=== PATIENT | male | born 1930 | race Caucasian/White ===

== ENCOUNTER → 2016-09-08 | Outpatient (CLI) | payer OTHER, BC ==
[~2016-09-08] MED LIST: ASPEC81 PO; CPR500 PO; FAMO20TA11 PO; LVNIS30 SC; OMEG10007 PO; OXYC-57 PO; PLV75 PO; PRS5 PO; PRVC10 PO; ROSU5TAB PO
== END | disposition home or self-care (01) ==
LOC: C.LABSPEC 17:57
PROVIDERS: ATTEND Urology
DX: N40.0 Benign prostatic hyperplasia without lower urinary tract symptoms (principal); R33.9 Retention of urine, unspecified

== ENCOUNTER → 2016-09-30 | Outpatient (CLI) | payer OTHER, BC ==
[2016-09-30 10:47] LABS: COMPLETE YES; EOS % 1.5 %; HEMATOCRIT 47.2 % (42-52); IG% 0.4 %; LYMPH % 24.7 %; MEAN CELL VOLUME 87.2 fL (80-100); MEAN CORPUSCULAR HEMOGLOBIN 29.2 pg (25-34); MEAN CORPUSCULAR HGB CONC 33.5 g/dl (32-36); MEAN PLATELET VOLUME 10.5 fL (7.4-10.4); MONO % 9.6 %; NEUT % 63.8 %; PLATELET COUNT 202 K/uL (130-400); RED BLOOD COUNT 5.41 M/uL (4.7-6.1); WHITE BLOOD COUNT 6.88 K/uL (4.8-10.8)
[2016-09-30 11:07] LABS: ALKALINE PHOSPHATASE 80 U/L (45-117); BLOOD UREA NITROGEN 20 mg/dl (7-18); BUN/CREATININE RATIO 13.5 (10-20); CALCIUM 8.9 mg/dl (8.5-10.1); CARBON DIOXIDE 26 mmol/L (21-32); CHLORIDE 109 mmol/L (98-107); GLUCOSE 108 mg/dl (70-99); POTASSIUM 4.5 mmol/L (3.5-5.1); SODIUM 141 mmol/L (136-145)
[2016-09-30 11:09] LABS: ALT/SGPT 19 U/L (12-78); AST/SGOT 19 U/L (15-37); CHOLESTEROL 214 mg/dl (0-200); CHOLESTEROL/HDL RATIO 4.1; HDL CHOLESTEROL 52 mg/dl; LDL CHOLESTEROL CALCULATED 143 mg/dl; TRIGLYCERIDES 93 mg/dl (0-150); VERY LOW DENSITY LIPOPROT CALC 19 mg/dl
--- NOTE | 2016-10-06 12:54 | CODING QUERY MEDICAL NECESSITY ---
SUPPORTING DIAGNOSIS NEEDED Dr. Hess, A supporting diagnosis is required for the test/procedure performed on this patient in order for us to be reimbursed by the patient's insurance. Please provide a supporting diagnosis for the following test/procedure listed below next to the test name along with your signature. *If there is no additional diagnosis for this patient that would support the following test/procedure please document that below next to the test/procedure. Test(s)/Procedure(s) that require a supporting diagnosis: * ([id number]) B12 VITAMIN LEVEL DIAGNOSIS: DATE OF SERVICE: 09/30/16 Provider Signature: Date: Thank you Pedro [facility] Information Management Once completed, please kindly fax back to [phone] For questions please call [phone]
== END | disposition home or self-care (01) ==
LOC: C.LABBC 08:51
PROVIDERS: ATTEND Internal Medicine
DX: I73.9 Peripheral vascular disease, unspecified (principal); E53.8 Deficiency of other specified B group vitamins

== ENCOUNTER → 2017-02-17 | Outpatient (CLI) | payer OTHER, BC ==
[~2017-02-17] MED LIST changes: -CPR500 PO; -LVNIS30 SC; -PLV75 PO; -PRS5 PO; -PRVC10 PO; -ROSU5TAB PO
== END | disposition home or self-care (01) ==
LOC: C.LABSPEC 10:31
PROVIDERS: ATTEND Urology
DX: R39.15 Urgency of urination (principal); N39.0 Urinary tract infection, site not specified

== ENCOUNTER 2017-03-18 05:06 | Inpatient (IN) | payer OTHER, BC ==
[~2017-03-18] VITALS: Ht 172.7 cm; Wt 83.0 kg
[2017-03-18] VITALS (8 sets, daily range): BP systolic 153–179; BP diastolic 69–89; PULSE 66–86; TEMP 36.6–37; O2SAT 94–98; Ht 172.7 cm; Wt 83.0 kg
--- NOTE | 2017-03-18 05:24 | EMERGENCY ROOM VISIT NOTE ---
History Report prepared by Jarvis: Stephania Barrios Under the Supervision of: Dr. Nick Meek M.D. First contact with patient: 05:05 Stated Complaint: STROKE SYMPTOMS History of Present Illness The patient is a 86 year old male who presents to the Emergency Room with complaints of sudden stroke symptoms beginning at 0100. Per EMS, the patient had trouble walking at 1500 yesterday. Then this morning he woke up at 0100 with left-sided weakness and slurred speech. Per EMS, the patient called his niece about his symptoms at 0400, who called the ambulance. The patient states that he takes 1 Ibuprofen per day, but no other blood thinners. The patient denies having other symptoms. The patient has a history of an AAA-repair. Source of History: patient, EMS Onset: 1500 yesterday Position: other (global ) Quality: other (stroke symptoms ) Timing: other (sudden) Associated Symptoms: No fevers Review of Systems See HPI for pertinent positives & negatives. A total of 10 systems reviewed and were otherwise negative. Past Medical & Surgical Medical Problems: (1) Left-sided weakness Surgical Problems: (1) S/P AAA repair Family History No pertinent family history stated. Social History Marital Status: single Housing Status: lives alone Current/Historical Medications Scheduled Aspirin Enteric Coated (Ecotrin Or Generic *), 81 MG PO DAILY Allergies Coded Allergies: Gluten (Verified Allergy, Unknown, DIARRHEA, ABD PAIN, 03/18/17) Atorvastatin (Verified Adverse Reaction, Unknown, DIZZINESS, MOOD CHANGE, 03/18/17) Pravastatin (Verified Adverse Reaction, Unknown, DIZZINESS,MOOD CHANGE, ) Simvastatin (Verified Adverse Reaction, Unknown, DIZZINESS, MOOD CHANGE, 03/18/17) Physical Exam Vital Signs Date Time Temp Pulse Resp B/P (MAP) Pulse Ox O2 Delivery O2 Flow Rate FiO2 03/18/17 06:30 69 14 146/63 96 03/18/17 06:00 75 29 157/103 97 03/18/17 05:50 73 16 140/80 95 Room Air 03/18/17 05:42 96 Room Air 03/18/17 05:29 77 03/18/17 05:20 36.8 74 20 169/85 95 Room Air Physical Exam GENERAL: Patient is well appearing and in no acute distress. HEENT: No acute trauma, normocephalic atraumatic, mucous membranes moist, no nasal congestion, no scleral icterus. NECK: No stridor, no adenopathy, no meningismus, trachea is midline. LUNGS: No dyspnea. Clear to auscultation and equal bilaterally. No wheeze, no rhonchi. HEART: Regular rate and rhythm. No murmurs, rubs, gallops appreciated. ABDOMEN: Soft, nontender, bowel sounds positive, no masses appreciated, no peritonitis. BACK: No midline tenderness, no CVA tenderness EXTREMITIES: Normal motion all extremities, no cyanosis, no edema. NEUROLOGIC: Alert and oriented, cranial nerves grossly intact. Mild left facial droop. Some decreased strength of left arm compared to the right. Mild left arm drift. 4/5 left leg strength with some ataxia. Mildly slurred speech. SKIN: No rash, no jaundice, no diaphoresis. Medical Decision & Procedures ER Provider Diagnostic Interpretation: Radiology results and stated below per my review and [facility]. CT HEAD: ADDENDUM- Added by Rickey Escalante MD on 03/18/2017 at 5-22 AM Typo in the preliminary report. Report should read: RIGHT basal ganglia remote lacunar infarct. No acute intracranial abnormality. No ICH, mass effect or edema. Cortical atrophy and white matter changes most consistent with chronic small vessel disease. Bilateral lacunar infarcts in the right basal ganglia. X ray results are stated below per my interpretation: Chest: 1 view: No infiltrate, no effusion, normal cardiac border. Laboratory Results 03/18/17 05:24 Red Blood Count 5.45, Mean Corpuscular Volume 85.3, Mean Corpuscular Hemoglobin 28.3, Mean Corpuscular Hemoglobin Concent 33.1, Mean Platelet Volume 9.6, Neutrophils (%) (Auto) 57.7, Lymphocytes (%) (Auto) 28.1, Monocytes (%) (Auto) 11.6, Eosinophils (%) (Auto) 2.3, Basophils (%) (Auto) 0.0, Neutrophils # (Auto ) 3.54, Lymphocytes # (Auto) 1.72, Monocytes # (Auto) 0.71, Eosinophils # (Auto ) 0.14, Basophils # (Auto) 0.00 03/18/17 05:24 Test 03/18/17 05:24 03/18/17 05:27 03/18/17 05:34 White Blood Count 6.13 K/uL (4.8-10.8) Red Blood Count 5.45 M/uL (4.7-6.1) Hemoglobin 15.4 g/dL (14.0-18.0) Hematocrit 46.5 % (42-52) Mean Corpuscular Volume 85.3 fL (80-100) Mean Corpuscular Hemoglobin 28.3 pg (25-34) Mean Corpuscular Hemoglobin Concent 33.1 g/dl (32-36) Platelet Count 189 K/uL (130-400) Mean Platelet Volume 9.6 fL (7.4-10.4) Neutrophils (%) (Auto) 57.7 % Lymphocytes (%) (Auto) 28.1 % Monocytes (%) (Auto) 11.6 % Eosinophils (%) (Auto) 2.3 % Basophils (%) (Auto) 0.0 % Neutrophils # (Auto) 3.54 K/uL (1.4-6.5) Lymphocytes # (Auto) 1.72 K/uL (1.2-3.4) Monocytes # (Auto) 0.71 K/uL (0.11-0.59) Eosinophils # (Auto) 0.14 K/uL (0-0.5) Basophils # (Auto) 0.00 K/uL (0-0.2) RDW Standard Deviation 44.2 fL (36.4-46.3) RDW Coefficient of Variation 14.2 % (11.5-14.5) Immature Granulocyte % (Auto) 0.3 % Immature Granulocyte # (Auto) 0.02 K/uL (0.00-0.02) Prothrombin Time 10.9 SECONDS (9.0-12.0) Prothromb Time International Ratio 1.0 (0.9-1.1) Activated Partial Thromboplast Time 25.4 SECONDS (21.0-31.0) Partial Thromboplastin Ratio 1.0 Est Creatinine Clear Calc Drug Dose 31.7 ml/min Estimated GFR () 45.3 Estimated GFR (Non- 39.1 BUN/Creatinine Ratio 12.8 (10-20) Estimated Average Glucose 103 mg/dl Hemoglobin A1c 5.2 % (4.5-5.6) Calcium Level 8.8 mg/dl (8.5-10.1) Total Creatine Kinase 81 U/L (39-308) Creatine Kinase MB 1.2 ng/ml (0.5-3.6) Creatine Kinase MB Ratio 1.5 (0-3.0) Triglycerides Level 67 mg/dl (0-150) Cholesterol Level 223 mg/dl (0-200) HDL Cholesterol 19 mg/dl LDL Cholesterol, Calculated 191 mg/dl VLDL Cholesterol, Calculated 13 mg/dl Cholesterol/HDL Ratio 11.7 Bedside Glucose 92 mg/dl (70-99) Bedside Hemoglobin 16.0 g/dl (14.0-18.0) Bedside Hematocrit 47 % (42-52) Bedside Sodium 139 mEq/L (135-144) Bedside Potassium 4.1 mEq/L (3.3-5.0) Bedside Chloride 105 mEq/L (101-112) Bedside Total CO2 23 mEq/l (24-31) Anion Gap 17.0 mmol/L (16-25) Bedside Blood Urea Nitrogen 21 mg/dl (7-18) Bedside Creatinine 1.5 mg/dl (0.6-1.3) Bedside Glucose (other) 97 mg/dl (70-99) Bedside Ionized Calcium (Annie) 1.15 mmol/l (1.12-1.32) Laboratory results as reviewed by me. Medications Administered Medications (Trade) Dose Ordered Sig/Dwayne Route Start Time Stop Time Status Last Admin Dose Admin Aspirin (Aspirin Chew) 324 mg NOW STAT PO 03/18/17 05:35 03/18/17 05:36 DC 03/18/17 05:41 324 MG ECG Indication: other (stroke symptoms ) Rate (beats per minute): 79 Rhythm: normal sinus Findings: no acute ischemic change, no ectopy, other (poor baseline ) ED Course 0512: The patient was evaluated in room B1. A complete history and physical exam was performed. 0522: I discussed the patient's case with Dr. Carbajal. He agrees that the patient is not a candidate for TPA. He reviewed the patient's CT again, and states that the images are consistent with a subacute stroke. 0535: Ordered Aspirin 324 mg PO. 0543: I checked on the patient. He is stable and agrees with the treatment plan. 0550: Discussed the patient's case with Dr. Bishop. The patient will be evaluated for further treatment and disposition. 0600: Upon reevaluation, the patient is resting. Discussed results and treatment plan with the patient. He verbalized understanding and agreement with the treatment plan. The patient will be evaluated for further management. Medical Decision Differential: Sepsis, Infectious (UTI/Pneumonia/Meningitis/etc), Metabolic/ Electrolyte Abnormality, Cardiac, Hepatic, Endocrine, Toxicologic, Neurologic, amongst other pathologies entertained. 86 yr old relatively healthy male with AAA repair a few years ago who was well until 3pm yesterday when he realized difficulty ambulating. Wax/waning for throughout the afternoon/evening. Noted when awake at 1 am he had seemed to worsen and around 4 am called anahi to make her aware, who then called 911. Patient arrives with what appears to be symptoms consistent with stroke. He is well outside of [address] was done emergently as Stroke Alert on arrival which revealed evidence of basal ganglia infarct. Patient stable. BP moderately elevated but will let this ride given acute stroke treatment. Tolerating secretions and swallowing without difficulty thus given ASA 324mg PO for further prevention. I did discuss cause with Stroke Neurologist in [place] who agreed patient not TPA candidate and reviewed CT imaging. Patient without complaints and stable throughout. Labs/EKG/CXR OK. Will bring in to Hospitalist service for further work-up and evaluation. Medication Reconcilliation Current Medication List: was personally reviewed by me Blood Pressure Screening Patient's blood pressure: Elevated blood pressure will be monitored by the hospitalist Consults Time Called: 0515 Consulting Physician: Dr. Carbajal- Stroke Neurologist [place] Returned Call: [phone] I discussed the patient's case with Dr. Carbajal. He agrees that the patient is not a candidate for TPA. He reviewed the patient's CT again, and states that the images are consistent with a subacute stroke. Additional Consults: Time Called: 0536 Consulted Physician: Dr. Adair Torres Returned Call: [phone] Additional Comments: Discussed the patient's case. The patient will be evaluated for further treatment and disposition. Impression Primary Impression: Ischemic stroke Scribe Attestation The scribe's documentation has been prepared under my direction and personally reviewed by me in its entirety. I confirm that the note above accurately reflects all work, treatment, procedures, and medical decision making performed by me. Departure Information Dispostion Being Evaluated By Hospitalist Referrals Garret Hess M.D. (PCP) Stroke History Time Last Known Well 15:00 11/1/17 Stroke t-PA Criteria Reviewed Does NOT meet criteria for t-PA Reason t-PA Not Given Contraindicated (Symptom onset 12 hours earlier)
[2017-03-18] MEDS ORDERED: ASPIRIN 324 MG CHEW PO STA (05:35)
[2017-03-18 05:38] LABS: COMPLETE YES; EOS % 2.3 %; HEMATOCRIT 46.5 % (42-52); IG% 0.3 %; LYMPH % 28.1 %; LYMPH ABS # 1.72 K/uL (1.2-3.4); MEAN CELL VOLUME 85.3 fL (80-100); MEAN CORPUSCULAR HEMOGLOBIN 28.3 pg (25-34); MEAN CORPUSCULAR HGB CONC 33.1 g/dl (32-36); MEAN PLATELET VOLUME 9.6 fL (7.4-10.4); MONO % 11.6 %; NEUT % 57.7 %; PLATELET COUNT 189 K/uL (130-400); RED BLOOD COUNT 5.45 M/uL (4.7-6.1); WHITE BLOOD COUNT 6.13 K/uL (4.8-10.8)
[2017-03-18 05:48] LABS: ISTAT CREATININE 1.5 mg/dl (0.6-1.3); ISTAT IONIZED CALCIUM 1.15 mmol/l (1.12-1.32)
[2017-03-18 05:54] LABS: BLOOD UREA NITROGEN 20 mg/dl (7-18); BUN/CREATININE RATIO 12.8 (10-20); CALCIUM 8.8 mg/dl (8.5-10.1); CARBON DIOXIDE 24 mmol/L (21-32); CHLORIDE 107 mmol/L (98-107); CREATININE 1.56 mg/dl (0.60-1.40); GLUCOSE 97 mg/dl (70-99); POTASSIUM 4.2 mmol/L (3.5-5.1); SODIUM 138 mmol/L (136-145)
[2017-03-18 05:59] LABS: CKMB/CK RATIO 1.5 (0-3.0)
[2017-03-18 06:06] LABS: PROTHROMBIN TIME (PATIENT) 10.9 SECONDS (9.0-12.0)
[2017-03-18] MEDS ORDERED: ACETAMINOPHEN 325 MG TAB PO PRN (06:30)
[2017-03-18] MEDS ORDERED: PHARMACIST DISCHARGE MED REC CONSULT PRN (06:30)
[2017-03-18] MEDS ORDERED: FAMOTIDINE IV INJ 20 MG in DEXTROSE 5% 100ML 100 ML IV SCH (06:30)
[2017-03-18] MEDS ORDERED: ONDANSETRON INJ 2 MG/ML 2 ML VIAL IV PRN (06:30)
[2017-03-18] MEDS ORDERED: ACETAMINOPHEN IV 100 ML IV PRN (06:30)
--- NOTE | 2017-03-18 06:47 | DIAGNOSTIC IMAGING REPORT ---
CHEST ONE VIEW PORTABLE CLINICAL HISTORY: Stroke symptoms. COMPARISON STUDY: Chest radiograph September 25, 2010. FINDINGS: Lung volumes are normal. No pneumothorax or pleural effusion is present. Pulmonary vascularity is normal. Cardiomediastinal silhouette is stable. There is no consolidation to suggest pneumonia. IMPRESSION: No acute cardiopulmonary findings. Electronically signed by: Edgardo Shah M.D. 03/18/2017 6:46 AM Dictated Date/Time: 03/18/2017 6:45 AM
--- NOTE | 2017-03-18 06:52 | DIAGNOSTIC IMAGING REPORT ---
CT OF THE HEAD WITHOUT CONTRAST CLINICAL HISTORY: Left sided weakness and tingling. Stroke symptoms. COMPARISON STUDY: No previous studies for comparison. CT DOSE: 651.12 mGy.cm TECHNIQUE: Helical axial images of the head were obtained without IV contrast. Automated exposure control was utilized for the study. A dose lowering technique was utilized adhering to the principles of ALARA. FINDINGS: No acute intracranial hemorrhage, midline shift or mass effect is present. Basilar cisterns are patent. No extra-axial collections are present. Ventricular system is unremarkable for age. A 9 mm hypodensity within the right caudate head is noted. This is likely old. There are no CT findings to suggest acute dural sinus thrombosis or acute territorial infarct. There are no significant calvarial abnormalities. Visualized portions of the sinuses and the mastoid air cells are clear. IMPRESSION: 1. No acute intracranial hemorrhage or mass effect. 2. 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 Electronically signed by: Edgardo Shah M.D. 03/18/2017 6:51 AM Dictated Date/Time: 03/18/2017 6:46 AM
--- NOTE | 2017-03-18 07:15 | History and Physical ---
History & Physical Date & Time of Service: Mar 18, 2017 at 07:00 Chief Complaint: Stroke Symptoms Primary Care Physician: Garret Hess M.D. History of Present Illness Source: patient, family The patient is an 86-year-old male, who lives alone, who noted an episode of palpitations and left-sided weakness as he was carrying a flowerpot to the outside of his house during the afternoon at 1500 hrs. He reports that he had been doing more intensive physical activity involving cleaning his outside chairs earlier in the day as well. He was later that day able to cook his own meal and 8 without any significant coughing or indigestion. When he awoke at 0100 hrs. this morning, his left sided weakness had returned, he had slurred speech as well, and called his niece at 04 100. Who then called the ambulance. Patient reports he does take aspirin daily. His main medical problems as point has been triple-A repair by Dr. Mitchell. The patient did present as a stroke alert, but was determined to not be an appropriate candidate for TPA due to timing of the stroke and significant improvement in symptoms. Past Medical/Surgical History Surgical Problems: (1) S/P AAA repair Status: Resolved Family History Noncontributory Social History Smoking Status: Former Smoker Smokeless Tobacco Use: No Alcohol Use: none Drug Use: none Marital Status: single Housing status: lives alone Immunizations History of Influenza Vaccine: No History of Tetanus Vaccine?: No History of Pneumococcal: No History of Hepatitis B Vaccine: No Multi-Drug Resistant Organisms History of MDRO: No Allergies Coded Allergies: Gluten (Verified Allergy, Unknown, DIARRHEA, ABD PAIN, 03/18/17) Atorvastatin (Verified Adverse Reaction, Unknown, DIZZINESS, MOOD CHANGE, 03/18/17) Pravastatin (Verified Adverse Reaction, Unknown, DIZZINESS,MOOD CHANGE, ) Simvastatin (Verified Adverse Reaction, Unknown, DIZZINESS, MOOD CHANGE, 03/18/17) Home Medications Scheduled Aspirin Enteric Coated (Ecotrin Or Generic *), 81 MG PO DAILY Review of Systems The patient denies chest pain, palpitations, shortness of breath, cough, lower extremity swelling, vision change, hearing change, sore throat, fevers, chills, sweats, weight change, fatigue, nausea, vomiting, diarrhea or constipation, abdominal pain, pelvic pain, blood in urine or stool, dysuria, urinary frequency or urgency, lightheadedness , dizziness, headache, memory loss, loss of consciousness, rash, abnormal bruising or bleeding, generalized arthralgias or myalgias, back or neck pain, or night sweats. The review of systems is otherwise negative other than for that already noted above, and at least 10 systems have been reviewed. Physical Exam Vital Signs Date Time Temp Pulse Resp B/P (MAP) Pulse Ox O2 Delivery O2 Flow Rate FiO2 03/18/17 06:30 69 14 146/63 96 03/18/17 06:00 75 29 157/103 97 03/18/17 05:50 73 16 140/80 95 Room Air 03/18/17 05:42 96 Room Air 03/18/17 05:29 77 03/18/17 05:20 36.8 74 20 169/85 95 Room Air The patient is awake, well-developed and adequately nourished, alert and oriented 3, normocephalic and atraumatic, lying in bed and in no acute distress. HEENT--PERRL, EOMI, mucous membranes and oropharynx dry. Neck--supple, no JVD or bruits, thyroid normal, trachea midline, no adenopathy. Heart--normal S1 and S2, no extra beats, no murmurs, rubs or gallops. Lungs--clear bilaterally with good air movement, no respiratory distress, no accessory muscle use. Abdomen--normal bowel sounds and soft, nontender and nondistended, no hernias or masses, no organomegaly. Extremities--no cyanosis, clubbing or edema. There are good distal pulses b/l. Dermatologic--normal skin turgor, normal color, warm and dry, no abnormal lymph nodes, no rash. Neurologic--cranial nerves II through XII grossly intact. Right upper and lower extremities 5/5 motor strength and intact sensation. Left upper extremity 4+/5 and left lower extremity 5/5 motor strength with intact sensation. Rheumatologic--normal range of motion. Psychiatric--normal affect. Diagnostics Laboratory Results Results Past 24 Hours Test 03/18/17 05:24 03/18/17 05:27 03/18/17 05:34 03/18/17 06:25 Range/Units White Blood Count 6.13 4.8-10.8 K/uL Red Blood Count 5.45 4.7-6.1 M/uL Hemoglobin 15.4 14.0-18.0 g/dL Hematocrit 46.5 42-52 % Mean Corpuscular Volume 85.3 80-100 fL Mean Corpuscular Hemoglobin 28.3 25-34 pg Mean Corpuscular Hemoglobin Concent 33.1 32-36 g/dl Platelet Count 189 130-400 K/uL Mean Platelet Volume 9.6 7.4-10.4 fL Neutrophils (%) (Auto) 57.7 % Lymphocytes (%) (Auto) 28.1 % Monocytes (%) (Auto) 11.6 % Eosinophils (%) (Auto) 2.3 % Basophils (%) (Auto) 0.0 % Neutrophils # (Auto) 3.54 1.4-6.5 K/uL Lymphocytes # (Auto) 1.72 1.2-3.4 K/uL Monocytes # (Auto) 0.71 0.11-0.59 K/uL Eosinophils # (Auto) 0.14 0-0.5 K/uL Basophils # (Auto) 0.00 0-0.2 K/uL RDW Standard Deviation 44.2 36.4-46.3 fL RDW Coefficient of Variation 14.2 11.5-14.5 % Immature Granulocyte % (Auto) 0.3 % Immature Granulocyte # (Auto) 0.02 0.00-0.02 K/uL Prothrombin Time 10.9 9.0-12.0 SECONDS Prothromb Time International Ratio 1.0 0.9-1.1 Activated Partial Thromboplast Time 25.4 21.0-31.0 SECONDS Partial Thromboplastin Ratio 1.0 Sodium Level 138 136-145 mmol/L Potassium Level 4.2 3.5-5.1 mmol/L Chloride Level 107 98-107 mmol/L Carbon Dioxide Level 24 21-32 mmol/L Anion Gap 7.0 17.0 16-25 mmol/L Blood Urea Nitrogen 20 7-18 mg/dl Creatinine 1.56 0.60-1.40 mg/dl Est Creatinine Clear Calc Drug Dose 31.7 ml/min Estimated GFR () 45.3 Estimated GFR (Non- 39.1 BUN/Creatinine Ratio 12.8 10-20 Random Glucose 97 70-99 mg/dl Calcium Level 8.8 8.5-10.1 mg/dl Total Creatine Kinase 81 39-308 U/L Creatine Kinase MB 1.2 0.5-3.6 ng/ml Creatine Kinase MB Ratio 1.5 0-3.0 Troponin I < 0.015 0-0.045 ng/ml Bedside Glucose 92 70-99 mg/dl Bedside Hemoglobin 16.0 14.0-18.0 g/dl Bedside Hematocrit 47 42-52 % Bedside Sodium 139 135-144 mEq/L Bedside Potassium 4.1 3.3-5.0 mEq/L Bedside Chloride 105 101-112 mEq/L Bedside Total CO2 23 24-31 mEq/l Bedside Blood Urea Nitrogen 21 7-18 mg/dl Bedside Creatinine 1.5 0.6-1.3 mg/dl Bedside Glucose (other) 97 70-99 mg/dl Bedside Ionized Calcium (Annie) 1.15 1.12-1.32 mmol/l Test 03/18/17 06:30 Range/Units Diagnostic Radiology Patient Name: MARYCARMEN HORAN Unit Number: [id number] Dictated: 03/18/17645 Transcribed: 03/18/17645 ANDIE Printed Date/Time: [~ rep prt dt]/[~ rep prt tm] [~ rep ct labl] - [~ rep ct ivnm] [facility] [place] [address] Dictated: 03/18/17645 Transcribed: 03/18/17645 Printed Date/Time: [~ rep prt dt]/[~ rep prt tm] [~ rep ct labl] - [~ rep ct ivnm] [~ rep ct add3]] CT OF THE HEAD WITHOUT CONTRAST CLINICAL HISTORY: Left sided weakness and tingling. Stroke symptoms. COMPARISON STUDY: No previous studies for comparison. CT DOSE: 651.12 mGy.cm TECHNIQUE: Helical axial images of the head were obtained without IV contrast. Automated exposure control was utilized for the study. A dose lowering technique was utilized adhering to the principles of ALARA. FINDINGS: No acute intracranial hemorrhage, midline shift or mass effect is present. Basilar cisterns are patent. No extra-axial collections are present. Ventricular system is unremarkable for age. A 9 mm hypodensity within the right caudate head is noted. This is likely old. There are no CT findings to suggest acute dural sinus thrombosis or acute territorial infarct. There are no significant calvarial abnormalities. Visualized portions of the sinuses and the mastoid air cells are clear. IMPRESSION: 1. No acute intracranial hemorrhage or mass effect. 2. 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 Electronically signed by: Edgardo Shah M.D. 03/18/2017 6:51 AM Dictated Date/Time: 03/18/2017 6:46 AM The status of this report is Signed. Draft = Not yet reviewed or approved by Radiologist. Signed = Reviewed and approved by Radiologist. <AttendingPhy></AttendingPhy> <FamilyPhy>Garret Hess M.D.</FamilyPhy> < PrimaryPhy>Garret Hess M.D.</PrimaryPhy> <UnitNumber>[id number]</UnitNumber> <VisitNumber>[id number]</VisitNumber> <PatientName>MARYCARMEN HORAN</ PatientName> <DateOfBirth>1930</DateOfBirth> <Location>C.EDB</Location> < ServiceDate>03/18/17</ServiceDate> <MNE>ESINDI</MNE> <OrderingPhy>Nick Meek M.D.</OrderingPhy> <OrderingPhyMNE>f rep ord dr pearson</OrderingPhyMNE> < DictatingPhyMNE>f rep dict dr pearson</DictatingPhyMNE> <CCListMNE>f rep ct michel</ CCListMNE> <AdmittingPhyMNE>f pt admit dr pearson</AdmittingPhyMNE> <AttendingPhyMNE >f pt attend dr pearson</AttendingPhyMNE> <ConsultingPhyMNE>f pt consult dr pearson</ConsultingPhyMNE> <FamilyPhyMNE>f pt fam dr pearson</FamilyPhyMNE> <OtherPhyMNE>f pt other dr pearson</OtherPhyMNE> < PrimaryPhyMNE>f pt prim care dr pearson</PrimaryPhyMNE> <ReferringPhyMNE>f pt referring dr pearson</ReferringPhyMNE> Patient Name: MARYCARMEN HORAN Unit Number: [id number] Dictated: 03/18/17644 Transcribed: 03/18/17644 JA Printed Date/Time: [~ rep prt dt]/[~ rep prt tm] [~ rep ct labl] - [~ rep ct ivnm] [facility] [place] [address] Dictated: 03/18/17644 Transcribed: 03/18/17644 JA Printed Date/Time: [~ rep prt dt]/[~ rep prt tm] [~ rep ct labl] - [~ rep ct ivnm] [~ rep ct add3]] CHEST ONE VIEW PORTABLE CLINICAL HISTORY: Stroke symptoms. COMPARISON STUDY: Chest radiograph September 25, 2010. FINDINGS: Lung volumes are normal. No pneumothorax or pleural effusion is present. Pulmonary vascularity is normal. Cardiomediastinal silhouette is stable. There is no consolidation to suggest pneumonia. IMPRESSION: No acute cardiopulmonary findings. Electronically signed by: Edgardo Shah M.D. 03/18/2017 6:46 AM Dictated Date/Time: 03/18/2017 6:45 AM The status of this report is Signed. Draft = Not yet reviewed or approved by Radiologist. Signed = Reviewed and approved by Radiologist. <AttendingPhy></AttendingPhy> <FamilyPhy>Garret Hess M.D.</FamilyPhy> < PrimaryPhy>Garret Hess M.D.</PrimaryPhy> <UnitNumber>[id number]</UnitNumber> <VisitNumber>[id number]</VisitNumber> <PatientName>MARYCARMEN HORAN</ PatientName> <DateOfBirth>1930</DateOfBirth> <Location>C.EDB</Location> < ServiceDate>03/18/17</ServiceDate> <MNE>ESINDI</MNE> <OrderingPhy>Nick Meek M.D.</OrderingPhy> <OrderingPhyMNE>f rep ord dr pearson</OrderingPhyMNE> < DictatingPhyMNE>f rep dict dr pearson</DictatingPhyMNE> <CCListMNE>f rep ct mne</ CCListMNE> <AdmittingPhyMNE>f pt admit dr pearson</AdmittingPhyMNE> <AttendingPhyMNE >f pt attend dr pearson</AttendingPhyMNE> <ConsultingPhyMNE>f pt consult dr pearson</ConsultingPhyMNE> <FamilyPhyMNE>f pt fam dr pearson</FamilyPhyMNE> <OtherPhyMNE>f pt other dr pearson</OtherPhyMNE> < PrimaryPhyMNE>f pt prim care dr pearson</PrimaryPhyMNE> <ReferringPhyMNE>f pt referring dr pearson</ReferringPhyMNE> EKG EKG is pending at the time of dictation, the rhythm on the monitor and ED shows normal sinus rhythm at 80 bpm Impression Assessment and Plan Left sided weakness/TIA versus CVA/CT of head initially read as right basal ganglia lacunar infarcts and later read as 9 mm caudate nucleus infarct likely old-- Patient be admitted per stroke protocol. The patient will be admitted to telemetry for serial cardiac enzymes, cardiac rhythm monitoring and a 2-D echocardiogram with Dopplers. Order MRI of brain combo, MRA of head without contrast, and MRA of the neck combo. Consult PT/OT/manager social/neurology. The patient reports he takes a baby aspirin daily, and this will be aspirin failure. Stop aspirin 81 mg daily. Start clopidogrel 75 mg by mouth daily Permissive hypertension with blood pressure in the ED 156/100. The patient is intolerant of statins including atorvastatin, pravastatin and simvastatin. Renal insufficiency of unknown chronicity with creatinine of 1.56-- Normal saline at 100 mils per hour. Serial BMP and magnesium levels. Level of Care Telemetry Advanced Directives Existing Advance Directive: No Existing Living Will: No Existing Power of [place]: No Resuscitation Status FULL RESUSCITATION VTE Prophylaxis VTE Risk Assessment Done? Y/N: Yes Risk Level: High Given or contraindicated: Enoxaparin (Lovenox)SQ, SCD's Social Service Consult >80 yr.& Lives Alone
[2017-03-18 07:57] LABS: CHOLESTEROL/HDL RATIO 11.7
[2017-03-18] MEDS: SODIUM CHLORIDE 0.9% 1000ML 1,000 ML IV SCH ×2 (08:23→17:03)
[2017-03-18 08:28] LABS: URINE APPEARANCE CLOUDY (CLEAR); URINE BILIRUBIN NEG (NEG); URINE COLOR YELLOW; URINE EPITHELIAL CELL AUTO 20-30 /lpf (0-5); URINE NITRITE POS (NEG); URINE SPECIFIC GRAVITY 1.014 (1.000-1.030); UROBILINOGEN NEG (NEG); ZZURINE CULT IF INDIC CATH YES
[2017-03-18 08:29] LABS: MANUAL MICROSCOPIC REQUIRED? NO; REVIEW REQ? YES
[2017-03-18 08:53] LABS: BENZODIAZEPINE, URINE NEG (NEG); COCAINE,URINE NEG (NEG); PHENCYCLIDINE, URINE NEG (NEG)
[2017-03-18] MEDS: CLOPIDOGREL BISULFATE 75 MG TAB PO SCH (09:13)
[2017-03-18] MEDS: FAMOTIDINE IV INJ 20 MG in SYRINGE 3 ML IV SCH ×2 (09:13→20:59)
[2017-03-18] MEDS: ENOXAPARIN 30 MG/0.3 ML SYR SC SCH (09:14)
--- NOTE | 2017-03-18 09:20 | Neurology Consultation ---
Neurology Consultation Date of Consultation: Mar 18, 2017. Attending Physician: Francisco J Sol D.O. Primary Care Physician: Garret Hess M.D. Reason for Consultation: Consultation for stroke History of Present Illness Source: patient, clinic records, hospital records This is a 86-year-old left-handed male who presents with left-sided weakness. He reports that he was working in the yard yesterday afternoon when he suddenly got weakness on the left side of his body. Reported rapid heart rate. Initially just felt like his left arm and leg felt on. When inside to rest. Symptoms seem to increase overnight and he presented to the emergency room for evaluation. She denies any numbness or tingling. He did report that initially his left face felt off as well. He does report trouble getting his words out since this happened. Denies any vision changes. Denies any chest pain or shortness of breath. Denies any past strokelike events. Patient reports intolerance to Lipitor, pravastatin and simvastatin. On questioning his response he reports that these medications make him feel dizzy and high. He denies muscle pain. Upon reviewing the outpatient chart it also appears that the patient had been recommended taking low-dose aspirin especially in setting of his peripheral vascular disease which he also refused. There have been discussions on retrying a low-dose statin which he refused. This morning the patient reports that his left-sided symptoms persist but his facial symptoms improved. CT of the head report and images reviewed by myself. There is evidence of a right caudate ischemic stroke that is age determinant but likely chronic. Total cholesterol 223, LDL 191, HDL 19, triglycerides 67, creatinine 1.5. Hemoglobin A1c is pending. Past Medical/Surgical History Medical Problems: (1) Right basal ganglia embolic stroke Status: Acute Past medical history significant for AAA repair, renal insufficiency and neurogenic bladder, dyslipidemia, peripheral vascular disease, chronic low back pain Family History Patient denies any family history for stroke, heart attacks, or blood clots Social History Patient is normally independent in his activities of daily living. Remote tobacco use. Occasional alcohol use. No illegal drug use or stimulant use Smokeless Tobacco Use: No Alcohol Use: none Drug Use: none Marital Status: single Housing Status: lives alone Allergies Coded Allergies: Gluten (Verified Allergy, Unknown, DIARRHEA, ABD PAIN, 03/18/17) Atorvastatin (Verified Adverse Reaction, Unknown, DIZZINESS, MOOD CHANGE, 03/18/17) Pravastatin (Verified Adverse Reaction, Unknown, DIZZINESS,MOOD CHANGE, ) Simvastatin (Verified Adverse Reaction, Unknown, DIZZINESS, MOOD CHANGE, 03/18/17) Current Inpatient Medications Current Inpatient Medications Medications (Trade) Dose Ordered Sig/Dwayne Route Start Time Stop Time Status Last Admin Dose Admin Clopidogrel Bisulfate (plAVix TAB) 75 mg QAM PO 03/18/17 09:00 04/17/17 08:59 Miscellaneous Information (Pharmacist Discharge Med Rec Consult) 1 ea UD PRN N/A 03/18/17 06:30 04/17/17 06:29 Sodium Chloride 1,000 ml @ 100 mls/hr Q10H IV 03/18/17 07:45 04/17/17 07:44 03/18/17 08:23 100 MLS/HR Enoxaparin Sodium (Lovenox Inj) 30 mg Q24H SC 03/18/17 09:00 04/17/17 08:59 Acetaminophen (Tylenol Tab) 650 mg Q4H PRN PO 03/18/17 06:30 04/17/17 06:29 Ondansetron HCl (Zofran Inj) 4 mg Q6H PRN IV 03/18/17 06:30 04/17/17 06:29 Acetaminophen 100 ml @ 400 mls/hr Q8H PRN IV 03/18/17 06:30 04/17/17 06:29 Famotidine 20 mg/ Syringe 5 ml @ 2.5 mls/min Q12H IV 03/18/17 09:00 04/17/17 08:59 Review of Systems Complete review of systems otherwise negative except for the above noted in history of present illness Physical Exam Vital Signs (Past 24 Hrs): Date Time Temp Pulse Resp B/P (MAP) Pulse Ox O2 Delivery O2 Flow Rate FiO2 03/18/17 08:22 36.6 71 20 176/82 97 Room Air 03/18/17 08:00 97 Room Air 03/18/17 07:38 36.6 71 18 176/82 (113) 97 Room Air 03/18/17 06:30 69 14 146/63 96 03/18/17 06:00 75 29 157/103 97 03/18/17 05:50 73 16 140/80 95 Room Air 03/18/17 05:42 96 Room Air 03/18/17 05:29 77 03/18/17 05:20 36.8 74 20 169/85 95 Room Air Gen.: Patient is alert and sitting in bed, in no acute distress. HEENT: Normocephalic /atraumatic, no scleral icterus Heart: Regular rate and rhythm Extremities: No gross deformities or rashes noted Neurological examination: Mental status: Patient is alert and oriented x3. Attention and concentration normal for the situation. Good fund of knowledge. Remote and recent memory intact. Speech is fluent without any dysarthria or aphasia noted Cranial nerve: Visual weir intact to counting. Funduscopic examination was unremarkable. No papilledema. Pupils equally round and reactive to light. Extraocular muscles intact without nystagmus. No facial asymmetry noted. Facial sensation intact. Tongue is midline. Good palatal elevation. Good shoulder shrug bilaterally. Hearing grossly intact to voice. Strength: 5/5 both proximal and distally in the right upper and lower extremity. Trace weakness in left upper and lower extremity with pronator drift of left upper cavity. Tone is normal. Sensation: Grossly intact to light touch in all extremities. No sensory extinction Deep tendon reflexes: +1 in bilateral biceps, brachioradialis and patellar. Subtle upgoing toe on the left Coordination: Patient had good finger to nose without dysmetria but had more difficulty on the left due to likely upper extremity weakness Station within the bed was normal Laboratory Results Past 24 Hours: 03/18/17 05:24 Red Blood Count 5.45, Mean Corpuscular Volume 85.3, Mean Corpuscular Hemoglobin 28.3, Mean Corpuscular Hemoglobin Concent 33.1, Mean Platelet Volume 9.6, Neutrophils (%) (Auto) 57.7, Lymphocytes (%) (Auto) 28.1, Monocytes (%) (Auto) 11.6, Eosinophils (%) (Auto) 2.3, Basophils (%) (Auto) 0.0, Neutrophils # (Auto ) 3.54, Lymphocytes # (Auto) 1.72, Monocytes # (Auto) 0.71, Eosinophils # (Auto ) 0.14, Basophils # (Auto) 0.00 03/18/17 05:24 Test 03/18/17 05:24 03/18/17 05:27 03/18/17 05:34 03/18/17 08:20 White Blood Count 6.13 K/uL (4.8-10.8) Red Blood Count 5.45 M/uL (4.7-6.1) Hemoglobin 15.4 g/dL (14.0-18.0) Hematocrit 46.5 % (42-52) Mean Corpuscular Volume 85.3 fL (80-100) Mean Corpuscular Hemoglobin 28.3 pg (25-34) Mean Corpuscular Hemoglobin Concent 33.1 g/dl (32-36) Platelet Count 189 K/uL (130-400) Mean Platelet Volume 9.6 fL (7.4-10.4) Neutrophils (%) (Auto) 57.7 % Lymphocytes (%) (Auto) 28.1 % Monocytes (%) (Auto) 11.6 % Eosinophils (%) (Auto) 2.3 % Basophils (%) (Auto) 0.0 % Neutrophils # (Auto) 3.54 K/uL (1.4-6.5) Lymphocytes # (Auto) 1.72 K/uL (1.2-3.4) Monocytes # (Auto) 0.71 K/uL (0.11-0.59) Eosinophils # (Auto) 0.14 K/uL (0-0.5) Basophils # (Auto) 0.00 K/uL (0-0.2) RDW Standard Deviation 44.2 fL (36.4-46.3) RDW Coefficient of Variation 14.2 % (11.5-14.5) Immature Granulocyte % (Auto) 0.3 % Immature Granulocyte # (Auto) 0.02 K/uL (0.00-0.02) Prothrombin Time 10.9 SECONDS (9.0-12.0) Prothromb Time International Ratio 1.0 (0.9-1.1) Activated Partial Thromboplast Time 25.4 SECONDS (21.0-31.0) Partial Thromboplastin Ratio 1.0 Est Creatinine Clear Calc Drug Dose 31.7 ml/min Estimated GFR () 45.3 Estimated GFR (Non- 39.1 BUN/Creatinine Ratio 12.8 (10-20) Calcium Level 8.8 mg/dl (8.5-10.1) Total Creatine Kinase 81 U/L (39-308) Creatine Kinase MB 1.2 ng/ml (0.5-3.6) Creatine Kinase MB Ratio 1.5 (0-3.0) Troponin I < 0.015 ng/ml (0-0.045) Triglycerides Level 67 mg/dl (0-150) Cholesterol Level 223 mg/dl (0-200) HDL Cholesterol 19 mg/dl LDL Cholesterol, Calculated 191 mg/dl VLDL Cholesterol, Calculated 13 mg/dl Cholesterol/HDL Ratio 11.7 Bedside Glucose 92 mg/dl (70-99) Bedside Hemoglobin 16.0 g/dl (14.0-18.0) Bedside Hematocrit 47 % (42-52) Bedside Sodium 139 mEq/L (135-144) Bedside Potassium 4.1 mEq/L (3.3-5.0) Bedside Chloride 105 mEq/L (101-112) Bedside Total CO2 23 mEq/l (24-31) Anion Gap 17.0 mmol/L (16-25) Bedside Blood Urea Nitrogen 21 mg/dl (7-18) Bedside Creatinine 1.5 mg/dl (0.6-1.3) Bedside Glucose (other) 97 mg/dl (70-99) Bedside Ionized Calcium (Annie) 1.15 mmol/l (1.12-1.32) Urine Color YELLOW Urine Appearance CLOUDY (CLEAR) Urine pH 7.0 (4.5-7.5) Urine Specific [place] 1.014 (1.000-1.030) Urine Protein NEG (NEG) Urine Glucose (UA) NEG (NEG) Urine Ketones NEG (NEG) Urine Occult Blood NEG (NEG) Urine Nitrite POS (NEG) Urine Bilirubin NEG (NEG) Urine Urobilinogen NEG (NEG) Urine Leukocyte Esterase SMALL (NEG) Urine WBC (Auto) 5-10 /hpf (0-5) Urine RBC (Auto) 0-4 /hpf (0-4) Urine Hyaline Casts (Auto) 0 /lpf (0-5) Urine Epithelial Cells (Auto) 20-30 /lpf (0-5) Urine Bacteria (Auto) 3+ (NEG) Urine Yeast (Auto) (NONE PRSENT) Urine Opiates Screen NEG (NEG) Urine Methadone, Qualitative NEG (NEG) Urine Barbiturates NEG (NEG) Urine Phencyclidine (PCP) Level NEG (NEG) Ur Amphetamine/Methamphetamine NEG (NEG) MDMA (Ecstasy) Screen NEG (NEG) Urine Benzodiazepines Screen NEG (NEG) Urine Cocaine Metabolite NEG (NEG) Urine Marijuana (THC) NEG (NEG) Imaging As noted above in history of present illness Impression This is a 86-year-old left-handed male who presents with acute onset of left hemiplegia, subjective speech changes, and resolved left facial symptoms. Likely right hemispheric ischemic stroke. Known stroke risk factors include dyslipidemia and peripheral vascular disease. Patient was not on an aspirin or statin at the time of the event. Plan It does not sound like the patient has had a true statin allergy or intolerance. He reports that statins just make him feel off or high. Recommend trying a low-dose statin. I have ordered pravastatin 10 mg at night to see if the patient tolerates this. Agree with Plavix initiation for secondary stroke prevention MRI of the brain and MRA of the head and neck are pending Echocardiogram is pending Hemoglobin A1c is pending Follow-up PT/OT and speech therapies for discharge planning. Blood pressure recommendations while in hospital 175/95-150/80 (MAPs 90-110) Avoid hypotension and dehydration Stroke risk factor modifications and recommendations: Blood pressure recommendations for the first month post hospital discharge 150/ 90-130/80, and after that blood pressure recommendations 130/80-110/70 Total cholesterol goal 100-200 and LDL goal less than 100 Hemoglobin A1c goal less than 7 Encourage cardiovascular exercise at least 3 times a week for 30 minutes. Follow-up in neurology clinic in 1 month for post stroke hospital follow-up. If there is any questions or concerns, feel free to call/page me.
[2017-03-18 10:18] LABS: ESTIMATED AVERAGE GLUCOSE 103 mg/dl; HA1C FLAG Normal (Normal)
--- NOTE | 2017-03-18 11:52 | Hospitalist Progress Note ---
Hospitalist Progress Note Date of Service Mar 18, 2017. Subjective Pt evaluation today including: conversation w/ patient Voiding: requires PRN straight cath Patient resting in bed. No signs of acute distress. Eating and drinking OK. Admits to continued slurred speech- however, improving +L sided weakness- denies improvement since admission +palpitations yesterday afternoon, but quickly resolved within minutes. Denies any recurrent palpitations since admission. Neurology started patient on Pravastatin. Discussed allergies w/ patient- Lipitor made patient "high." Denies issues w/ Pravastatin and Simvastatin. Patient denies any fever, chills, sweats, lightheadedness, dizziness, vision changes, CP, edema, SOB, wheezing, cough, abdominal pain, nausea, vomiting, diarrhea, urinary symptoms, melena, numbness/tingling, muscle/joint pain, anxiety/depression, active bleeding, or new skin discoloration/changes. Medications Current Inpatient Medications Medications (Trade) Dose Ordered Sig/Dwayne Route Start Time Stop Time Status Last Admin Dose Admin Clopidogrel Bisulfate (plAVix TAB) 75 mg QAM PO 03/18/17 09:00 04/17/17 08:59 03/18/17 09:13 75 MG Miscellaneous Information (Pharmacist Discharge Med Rec Consult) 1 ea UD PRN N/A 03/18/17 06:30 04/17/17 06:29 Sodium Chloride 1,000 ml @ 100 mls/hr Q10H IV 03/18/17 07:45 04/17/17 07:44 03/18/17 08:23 100 MLS/HR Enoxaparin Sodium (Lovenox Inj) 30 mg Q24H SC 03/18/17 09:00 04/17/17 08:59 03/18/17 09:14 30 MG Acetaminophen (Tylenol Tab) 650 mg Q4H PRN PO 03/18/17 06:30 04/17/17 06:29 Ondansetron HCl (Zofran Inj) 4 mg Q6H PRN IV 03/18/17 06:30 04/17/17 06:29 Acetaminophen 100 ml @ 400 mls/hr Q8H PRN IV 03/18/17 06:30 04/17/17 06:29 Famotidine 20 mg/ Syringe 5 ml @ 2.5 mls/min Q12H IV 03/18/17 09:00 04/17/17 08:59 03/18/17 09:13 2.5 MLS/MIN Pravastatin Sodium (Pravachol Tab) 10 mg DAILY@17 PO 03/18/17 17:00 04/17/17 16:59 UNV Finasteride (Proscar Tab) 5 mg QAM PO 03/19/17 09:00 04/18/17 08:59 UNV Objective Vital Signs Date Time Temp Pulse Resp B/P (MAP) Pulse Ox O2 Delivery O2 Flow Rate FiO2 03/18/17 08:22 36.6 71 20 176/82 97 Room Air 03/18/17 08:00 97 Room Air 03/18/17 07:38 36.6 71 18 176/82 (113) 97 Room Air 03/18/17 06:30 69 14 146/63 96 03/18/17 06:00 75 29 157/103 97 03/18/17 05:50 73 16 140/80 95 Room Air 03/18/17 05:42 96 Room Air 03/18/17 05:29 77 03/18/17 05:20 36.8 74 20 169/85 95 Room Air Physical Exam General Appearance: no apparent distress Eyes: normal inspection, PERRL ENT: hearing grossly normal Neck: supple Respiratory/Chest: lungs clear, no respiratory distress, no accessory muscle use Cardiovascular: regular rate, rhythm Abdomen: normal bowel sounds, non tender, soft Extremities: no pedal edema, no calf tenderness Neurologic/Psychiatric: alert, normal mood/affect, oriented x 3, + pertinent finding (+minimal L sided weakness to upper/lower extremity ) Skin: normal color, warm/dry, no rash Laboratory Results Last 24 Hours Test 03/18/17 05:24 03/18/17 05:27 03/18/17 05:34 03/18/17 08:20 White Blood Count 6.13 K/uL Red Blood Count 5.45 M/uL Hemoglobin 15.4 g/dL Hematocrit 46.5 % Mean Corpuscular Volume 85.3 fL Mean Corpuscular Hemoglobin 28.3 pg Mean Corpuscular Hemoglobin Concent 33.1 g/dl Platelet Count 189 K/uL Mean Platelet Volume 9.6 fL Neutrophils (%) (Auto) 57.7 % Lymphocytes (%) (Auto) 28.1 % Monocytes (%) (Auto) 11.6 % Eosinophils (%) (Auto) 2.3 % Basophils (%) (Auto) 0.0 % Neutrophils # (Auto) 3.54 K/uL Lymphocytes # (Auto) 1.72 K/uL Monocytes # (Auto) 0.71 K/uL Eosinophils # (Auto) 0.14 K/uL Basophils # (Auto) 0.00 K/uL RDW Standard Deviation 44.2 fL RDW Coefficient of Variation 14.2 % Immature Granulocyte % (Auto) 0.3 % Immature Granulocyte # (Auto) 0.02 K/uL Prothrombin Time 10.9 SECONDS Prothromb Time International Ratio 1.0 Activated Partial Thromboplast Time 25.4 SECONDS Partial Thromboplastin Ratio 1.0 Sodium Level 138 mmol/L Potassium Level 4.2 mmol/L Chloride Level 107 mmol/L Carbon Dioxide Level 24 mmol/L Anion Gap 7.0 mmol/L 17.0 mmol/L Blood Urea Nitrogen 20 mg/dl Creatinine 1.56 mg/dl Est Creatinine Clear Calc Drug Dose 31.7 ml/min Estimated GFR () 45.3 Estimated GFR (Non- 39.1 BUN/Creatinine Ratio 12.8 Random Glucose 97 mg/dl Calcium Level 8.8 mg/dl Total Creatine Kinase 81 U/L Creatine Kinase MB 1.2 ng/ml Creatine Kinase MB Ratio 1.5 Troponin I < 0.015 ng/ml Triglycerides Level 67 mg/dl Cholesterol Level 223 mg/dl HDL Cholesterol 19 mg/dl LDL Cholesterol, Calculated 191 mg/dl VLDL Cholesterol, Calculated 13 mg/dl Cholesterol/HDL Ratio 11.7 Bedside Glucose 92 mg/dl Bedside Hemoglobin 16.0 g/dl Bedside Hematocrit 47 % Bedside Sodium 139 mEq/L Bedside Potassium 4.1 mEq/L Bedside Chloride 105 mEq/L Bedside Total CO2 23 mEq/l Bedside Blood Urea Nitrogen 21 mg/dl Bedside Creatinine 1.5 mg/dl Bedside Glucose (other) 97 mg/dl Bedside Ionized Calcium (Annie) 1.15 mmol/l Urine Color YELLOW Urine Appearance CLOUDY Urine pH 7.0 Urine Specific [place] 1.014 Urine Protein NEG Urine Glucose (UA) NEG Urine Ketones NEG Urine Occult Blood NEG Urine Nitrite POS Urine Bilirubin NEG Urine Urobilinogen NEG Urine Leukocyte Esterase SMALL Urine WBC (Auto) 5-10 /hpf Urine RBC (Auto) 0-4 /hpf Urine Hyaline Casts (Auto) 0 /lpf Urine Epithelial Cells (Auto) 20-30 /lpf Urine Bacteria (Auto) 3+ Urine Yeast (Auto) Urine Opiates Screen NEG Urine Methadone, Qualitative NEG Urine Barbiturates NEG Urine Phencyclidine (PCP) Level NEG Ur Amphetamine/Methamphetamine NEG MDMA (Ecstasy) Screen NEG Urine Benzodiazepines Screen NEG Urine Cocaine Metabolite NEG Urine Marijuana (THC) NEG Assessment and Plan The patient is an 86-year-old male, who lives alone, who noted an episode of palpitations and left-sided weakness as he was carrying a flowerpot to the outside of his house during the afternoon at 1500 hrs. He reports that he had been doing more intensive physical activity involving cleaning his outside chairs earlier in the day as well. He was later that day able to cook his own meal and 8 without any significant coughing or indigestion. When he awoke at 0100 hrs. this morning, his left sided weakness had returned, he had slurred speech as well, and called his niece at 04 100. Who then called the ambulance. Patient reports he does take aspirin daily. His main medical problems as point has been triple-A repair by Dr. Mitchell. The patient did present as a stroke alert, but was determined to not be an appropriate candidate for TPA due to timing of the stroke and significant improvement in symptoms. 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 Piper: - Continue Finasteride 5 mg daily, CIC BID - UCx pending GI prophylaxis: Pepcid DVT prophylaxis: Lovenox SQ daily Code Status: LEVEL I, FULL Dispo: From home, lives alone- PT/OT and CM consulted
[2017-03-18] MEDS ORDERED: GADAVIST IV PRN (12:15)
--- NOTE | 2017-03-18 12:18 | DIAGNOSTIC IMAGING REPORT ---
MR ANGIOGRAM OF THE BRAIN CLINICAL HISTORY: Left leg weakness. Stroke like symptoms. COMPARISON STUDY: CT of the brain dated 03/18/2017. TECHNIQUE: 3-D [id number] MR angiography of the intracranial circulation is performed. 3-D tumble views are created and assessed. IV contrast was not administered for this examination. The examination is modestly degraded by motion artifact. FINDINGS: The internal carotid arteries are widely patent bilaterally, as are the anterior and middle cerebral arteries. The vertebrobasilar system and posterior cerebral arteries are widely patent. The vertebral arteries are codominant. 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 There is no saccular aneurysm identified. There is no high-grade stenosis or focal vessel cutoff seen throughout the intracranial circulation. The brain parenchyma is normal as visualized. IMPRESSION: 1. 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 2. Otherwise unremarkable MR angiographic the brain. Electronically signed by: Ed Martinez M.D. 03/18/2017 12:17 PM Dictated Date/Time: 03/18/2017 12:11 PM
--- NOTE | 2017-03-18 12:43 | DIAGNOSTIC IMAGING REPORT ---
MRI OF THE BRAIN COMBO CLINICAL HISTORY: Strokelike symptoms. COMPARISON STUDY: CT of the brain dated 03/18/2017. TECHNIQUE: MRI of the brain was performed utilizing various T1 and T2-weighted sequences in the axial, sagittal, and coronal planes. Contrast-enhanced sequences were acquired following the administration of 8 cc of Gadavist. The examination is degraded by motion artifact. Coronal postcontrast images were not obtained as the patient declined to complete the examination. FINDINGS: Brain parenchyma: There is a 1 cm focus of restricted diffusion identified in the right thalamus consistent with an acute to subacute lacunar infarct. No additional foci of restricted diffusion are identified. There is no hemorrhage or mass effect. There are age-related involutional changes noting moderate subcortical and periventricular microangiopathic disease. Chronic lacunar infarcts are identified in the meryl and the right caudate head. No enhancing mass lesion is identified on the axial postcontrast images. Tapia-white matter differentiation is preserved. No extra-axial fluid collection is seen. The cerebellar tonsils are normal in configuration. Ventricles, sulci, and cisterns: Prominent secondary to involutional change. Pituitary and sella: Unremarkable. Intracranial vasculature: Normal flow voids are maintained at the skull base. Orbits: The bony orbits are grossly intact. Orbital contents are normal in appearance noting bilateral ocular lens implants. Sinuses and mastoids: Clear. Calvarium: Unremarkable. Cervical cord: Partially visualized cervical spinal cord is normal in morphology and signal intensity. IMPRESSION: 1. Motion degraded examination. The patient declined to complete the study. 2. There is an acute to subacute lacunar infarct identified in the right thalamus. 3. No additional foci of acute ischemia are identified. 4. There is no hemorrhage or enhancing mass lesion. Electronically signed by: Ed Martinez M.D. 03/18/2017 12:42 PM Dictated Date/Time: 03/18/2017 12:38 PM
--- NOTE | 2017-03-18 12:51 | DIAGNOSTIC IMAGING REPORT ---
MRA OF THE NECK WITH AND WITHOUT CONTRAST CLINICAL HISTORY: Stroke. COMPARISON STUDY: Carotid ultrasound September 20, 2009. TECHNIQUE: Unenhanced and contrast-enhanced MRA of the neck was performed. Injection of 8 mL of Gadavist IV was uneventful. NASCET criteria were utilized to estimate the degree of carotid stenosis. FINDINGS: The bilateral common carotid arteries are patent without significant stenosis. There is narrowing and irregularity of the proximal right internal carotid artery that involves the proximal 1.8 cm of this vessel. There is moderate narrowing of the vessel most pronounced 1 cm distal to the vessel origin. The caliber of the vessel at the site of stenosis is approximately 2.1 mm. The distal portion of the internal carotid artery measures 4.5 mm. There is no significant stenosis of the left internal carotid artery. The bilateral vertebral arteries are patent. There is mild narrowing of the proximal right vertebral artery. There is multifocal vascular irregularity due to atherosclerosis. There is no evidence for dissection. IMPRESSION: 1. Irregularity and suspected moderate stenosis of the proximal right internal carotid artery with approximately 50% narrowing. 2. No significant stenosis within the left internal carotid or bilateral common carotid arteries. 3. No evidence for dissection. Electronically signed by: Edgardo Shah M.D. 03/18/2017 12:50 PM Dictated Date/Time: 03/18/2017 12:42 PM
[2017-03-18] MEDS: PRAVASTATIN SOD 10 MG TAB PO SCH (17:03)
--- NOTE | 2017-03-18 18:25 | ECHOCARDIOGRAM REPORT ---
*NOTICE TO RECEIVING [employer] This information is strictly Confidential and protected under [place] law. [place] law prohibits you from making any further disclosure of this information unless further disclosure is expressly permitted by the written consent of the person to whom it pertains or is authorized by law. A general authorization for the release of medical or other information is not sufficient for this purpose. Hospital accepts no responsibility if the information is made available to any other person, INCLUDING THE PATIENT. Interpretation Summary * Name: MARYCARMEN HORAN Study Date: 03/18/2017 03:15 PM BP: 140/80 mmHg * Patient Location: C.2T\S\S242\S\2 HR: 73 * : 1930 (M/d/y) Gender: Male Height: 68 in * Age: 86 yrs Ethnicity: [place] Weight: 174 lb * Ordering Physician: Bryan Bishop * Referring Physician: Self, Referred * Performed By: Effie Blake RDCS * * Reason For Study: Cerebral ischemia/embolus * BSA: 1.9 m2 * -- Conclusions -- * 1. Normal LV size, borderline concentric LVH. * 2. Normal LV systolic function. LVEF 55-60%. Moderate inferior hypokinesis. * 3. Normal RV size and function. * 4. Mild aortic regurgitation. * 5. Mildly dilated ascending arorta. * 6. Negative saline contrast study for interatrial shunt. * 7. Compared with prior study: Inferior wall motion abnormality is new. Procedure Details * A complete two-dimensional transthoracic echocardiogram was performed (2D, M-mode, Doppler and color flow Doppler). * A saline contrast injection was performed to assess for cardiac shunting. * The injection was performed through an intravenous line in the right arm. * The attending nurse who injected the saline contrast was Radha Arora RN. * A total of 20 cc of agitated saline was given. * A contrast injection of Definity was performed to improve assessment of LV function. * Contrast was injected into an intravenous site in the right arm. * One vial of Definity ultrasound contrast was diluted in normal saline to a total volume of 10 ml. A total of '3' ml of solution was administered during imaging. * Lot # [id number] of Definity utilized for procedure. * Expiration date may 03. * The attending nurse who injected the contrast agent was Melodie Nicolas RN. Left Ventricle * The left ventricle is grossly normal size. * There is borderline concentric left ventricular hypertrophy. * Ejection Fraction = 55-60%. * There is moderate inferior wall hypokinesis. Right Ventricle * The right ventricle is grossly normal size. * The right ventricular systolic function is normal as assessed by tricuspid annular plane systolic excursion (TAPSE) (normal >1.5 cm). Atria * The left atrial size is normal. * Right atrial size is normal. * Injection of contrast documented no interatrial shunt. Mitral Valve * The mitral valve is grossly normal. * Mitral stenosis is absent. * Significant mitral regurgitation is absent. Tricuspid Valve * Significant tricuspid regurgitation is absent. Aortic Valve * The aortic valve opens well. * No hemodynamically significant valvular aortic stenosis. * Mild aortic regurgitation. Pulmonic Valve * The pulmonary valve is inadequately visualized, but the Doppler data is adequate for interpretation. * Pulmonic stenosis is absent. * There is no significant pulmonary regurgitation. Great Vessels * Borderline dilated ascending aorta. Pericardium/Pleural * There is no pericardial effusion. MMode 2D Measurements and Calculations IVSd 1.1 cm LVIDd 4.4 cm LVIDs 2.8 cm LVPWd 1.1 cm IVS/LVPW 1.1 FS 36.6 % EDV(Teich) 88.2 ml ESV(Teich) 29.4 ml EF(Teich) 66.6 % EDV(cubed) 85.8 ml ESV(cubed) 21.8 ml EF(cubed) 74.6 % LV mass(C)d 169.3 grams LV mass(C)dI 87.9 grams/m\S\2 SV(Teich) 58.8 ml SI(Teich) 30.5 ml/m\S\2 SV(cubed) 64.0 ml SI(cubed) 33.2 ml/m\S\2 Ao root diam 4.0 cm Ao root area 12.5 cm\S\2 ACS 2.3 cm LA dimension 2.7 cm asc Aorta Diam 3.6 cm LA/Ao 0.67 LVOT diam 2.0 cm LVOT area 3.1 cm\S\2 LVAd ap4 27.3 cm\S\2 LVLd ap4 7.2 cm EDV(MOD-sp4) 83.8 ml EDV(sp4-el) 88.0 ml LVAs ap4 13.8 cm\S\2 LVLs ap4 5.2 cm ESV(MOD-sp4) 29.7 ml ESV(sp4-el) 30.8 ml EF(MOD-sp4) 64.6 % EF(sp4-el) 65.0 % LVAd ap2 23.3 cm\S\2 LVLd ap2 6.4 cm EDV(MOD-sp2) 68.6 ml EDV(sp2-el) 72.5 ml LVAs ap2 12.7 cm\S\2 LVLs ap2 5.7 cm ESV(MOD-sp2) 22.8 ml ESV(sp2-el) 24.1 ml EF(MOD-sp2) 66.7 % EF(sp2-el) 66.7 % LVLd %diff -13.48 % EDV(MOD-bp) 81.7 ml LVLs %diff 7.9 % ESV(MOD-bp) 26.5 ml EF(MOD-bp) 67.5 % SV(MOD-sp4) 54.1 ml SI(MOD-sp4) 28.1 ml/m\S\2 SV(MOD-sp2) 45.8 ml SI(MOD-sp2) 23.8 ml/m\S\2 SV(MOD-bp) 55.1 ml SI(MOD-bp) 28.6 ml/m\S\2 SV(sp4-el) 57.2 ml SI(sp4-el) 29.7 ml/m\S\2 SV(sp2-el) 48.3 ml SI(sp2-el) 25.1 ml/m\S\2 Doppler Measurements and Calculations MV E max raya 41.2 cm/sec MV A max raya 62.6 cm/sec MV E/A 0.66 MV dec time 0.24 sec Ao V2 max 71.8 cm/sec Ao max PG 2.1 mmHg Ao max PG (full) 0.37 mmHg DEWEY(V,A) 2.8 cm\S\2 DEWEY(V,D) 2.8 cm\S\2 AI max raya 233.1 cm/sec AI max PG 25.1 mmHg AI dec slope 122.3 cm/sec\S\2 AI P1/2t 558.4 msec LV V1 max PG 1.7 mmHg LV V1 max 65.1 cm/sec PA V2 max 61.3 cm/sec PA max PG 1.5 mmHg PA acc slope 258.8 cm/sec\S\2 PA acc time 0.17 sec PA pr(Accel) 4.0 mmHg
[2017-03-19] VITALS (7 sets, daily range): BP systolic 131–159; BP diastolic 67–77; PULSE 67–81; TEMP 36.4–36.8; O2SAT 92–97
[2017-03-19] MEDS: SODIUM CHLORIDE 0.9% 1000ML 1,000 ML IV SCH ×3 (05:19→18:58)
[2017-03-19 08:54] LABS: COMPLETE YES; EOS % 1.7 %; HEMATOCRIT 41.8 % (42-52); IG% 0.3 %; LYMPH % 20.8 %; MEAN CELL VOLUME 85.1 fL (80-100); MEAN CORPUSCULAR HEMOGLOBIN 28.7 pg (25-34); MEAN CORPUSCULAR HGB CONC 33.7 g/dl (32-36); MEAN PLATELET VOLUME 9.5 fL (7.4-10.4); MONO % 7.2 %; PLATELET COUNT 157 K/uL (130-400); RED BLOOD COUNT 4.91 M/uL (4.7-6.1); WHITE BLOOD COUNT 7.22 K/uL (4.8-10.8)
[2017-03-19 09:01] LABS: PROTHROMBIN TIME (PATIENT) 10.9 SECONDS (9.0-12.0)
[2017-03-19 09:19] LABS: BUN/CREATININE RATIO 15.5 (10-20); CALCIUM 8.4 mg/dl (8.5-10.1); CREATININE 1.46 mg/dl (0.60-1.40); POTASSIUM 4.2 mmol/L (3.5-5.1)
[2017-03-19] MEDS: FAMOTIDINE IV INJ 20 MG in SYRINGE 3 ML IV SCH (10:20)
[2017-03-19] MEDS: CLOPIDOGREL BISULFATE 75 MG TAB PO SCH (10:20)
[2017-03-19] MEDS: ENOXAPARIN 30 MG/0.3 ML SYR SC SCH (10:20)
[2017-03-19] MEDS: FINASTERIDE 5 MG TAB PO SCH (10:20)
--- NOTE | 2017-03-19 13:00 | Hospitalist Progress Note ---
Hospitalist Progress Note Date of Service Mar 19, 2017. Subjective Pt evaluation today including: conversation w/ patient, physical exam, lab review, review of studies, review of inpatient medication list Voiding: requires PRN straight cath (chronic ) Patient states he is feeling well. Alert/oriented x3. Speech issues have resolved. L sided weakness still present- believes it is improving. Eating and drinking OK. Planning for rehab. Patient denies any fever, chills, sweats, lightheadedness, dizziness, vision changes, CP, palpitations, edema, SOB, wheezing, cough, abdominal pain, nausea, vomiting, diarrhea, urinary symptoms, melena, numbness/tingling, muscle/joint pain, anxiety/depression, active bleeding, or new skin discoloration/changes. Medications Current Inpatient Medications Medications (Trade) Dose Ordered Sig/Dwayne Route Start Time Stop Time Status Last Admin Dose Admin Clopidogrel Bisulfate (plAVix TAB) 75 mg QAM PO 03/18/17 09:00 04/17/17 08:59 03/19/17 10:20 75 MG Miscellaneous Information (Pharmacist Discharge Med Rec Consult) 1 ea UD PRN N/A 03/18/17 06:30 04/17/17 06:29 Sodium Chloride 1,000 ml @ 100 mls/hr Q10H IV 03/18/17 07:45 04/17/17 07:44 03/19/17 05:19 100 MLS/HR Enoxaparin Sodium (Lovenox Inj) 30 mg Q24H SC 03/18/17 09:00 04/17/17 08:59 03/19/17 10:20 30 MG Acetaminophen (Tylenol Tab) 650 mg Q4H PRN PO 03/18/17 06:30 04/17/17 06:29 Ondansetron HCl (Zofran Inj) 4 mg Q6H PRN IV 03/18/17 06:30 04/17/17 06:29 Acetaminophen 100 ml @ 400 mls/hr Q8H PRN IV 03/18/17 06:30 04/17/17 06:29 Famotidine 20 mg/ Syringe 5 ml @ 2.5 mls/min Q12H IV 03/18/17 09:00 04/17/17 08:59 03/19/17 10:20 2.5 MLS/MIN Pravastatin Sodium (Pravachol Tab) 10 mg DAILY@17 PO 03/18/17 17:00 04/17/17 16:59 03/18/17 17:03 10 MG Finasteride (Proscar Tab) 5 mg QAM PO 03/19/17 09:00 04/18/17 08:59 03/19/17 10:20 5 MG Gadobutrol (Gadavist) 8 mmol UD PRN IV 03/18/17 12:15 03/22/17 12:14 Objective Vital Signs Date Time Temp Pulse Resp B/P (MAP) Pulse Ox O2 Delivery O2 Flow Rate FiO2 03/19/17 11:54 36.4 74 14 93 Room Air 03/19/17 08:00 36.6 70 18 131/67 (88) 92 Room Air 03/19/17 08:00 Room Air 03/19/17 04:00 Room Air 03/19/17 03:30 36.7 67 22 159/74 (102) 96 Room Air 03/19/17 00:33 36.8 71 17 147/77 (100) 95 Room Air 03/18/17 23:59 Room Air 03/18/17 20:00 Room Air 03/18/17 19:51 36.8 72 18 161/74 (103) 94 Room Air 03/18/17 16:09 36.8 66 18 153/70 (97) 94 Room Air 03/18/17 16:00 Room Air Physical Exam General Appearance: no apparent distress Eyes: normal inspection, PERRL ENT: hearing grossly normal Neck: supple Respiratory/Chest: lungs clear, no respiratory distress, no accessory muscle use Cardiovascular: regular rate, rhythm Abdomen: normal bowel sounds, non tender, soft Extremities: no pedal edema, no calf tenderness Neurologic/Psychiatric: alert, normal mood/affect, oriented x 3, + motor weakness (trace L sided weakness of upper/lower extremity) Skin: normal color, warm/dry, no rash Laboratory Results Last 24 Hours Test 03/18/17 14:02 03/18/17 20:30 03/19/17 07:43 03/19/17 08:32 Troponin I < 0.015 ng/ml < 0.015 ng/ml Bedside Glucose 78 mg/dl White Blood Count 7.22 K/uL Red Blood Count 4.91 M/uL Hemoglobin 14.1 g/dL Hematocrit 41.8 % Mean Corpuscular Volume 85.1 fL Mean Corpuscular Hemoglobin 28.7 pg Mean Corpuscular Hemoglobin Concent 33.7 g/dl Platelet Count 157 K/uL Mean Platelet Volume 9.5 fL Neutrophils (%) (Auto) 70.0 % Lymphocytes (%) (Auto) 20.8 % Monocytes (%) (Auto) 7.2 % Eosinophils (%) (Auto) 1.7 % Basophils (%) (Auto) 0.0 % Neutrophils # (Auto) 5.06 K/uL Lymphocytes # (Auto) 1.50 K/uL Monocytes # (Auto) 0.52 K/uL Eosinophils # (Auto) 0.12 K/uL Basophils # (Auto) 0.00 K/uL RDW Standard Deviation 44.2 fL RDW Coefficient of Variation 14.1 % Immature Granulocyte % (Auto) 0.3 % Immature Granulocyte # (Auto) 0.02 K/uL Prothrombin Time 10.9 SECONDS Prothromb Time International Ratio 1.0 Sodium Level 140 mmol/L Potassium Level 4.2 mmol/L Chloride Level 112 mmol/L Carbon Dioxide Level 20 mmol/L Anion Gap 8.0 mmol/L Blood Urea Nitrogen 23 mg/dl Creatinine 1.46 mg/dl Est Creatinine Clear Calc Drug Dose 36.7 ml/min Estimated GFR () 49.1 Estimated GFR (Non- 42.3 BUN/Creatinine Ratio 15.5 Random Glucose 82 mg/dl Calcium Level 8.4 mg/dl Assessment and Plan The patient is an 86-year-old male, who lives alone, who noted an episode of palpitations and left-sided weakness as he was carrying a flowerpot to the outside of his house during the afternoon at 1500 hrs. He reports that he had been doing more intensive physical activity involving cleaning his outside chairs earlier in the day as well. He was later that day able to cook his own meal and 8 without any significant coughing or indigestion. When he awoke at 0100 hrs. this morning, his left sided weakness had returned, he had slurred speech as well, and called his niece at 04 100. Who then called the ambulance. Patient reports he does take aspirin daily. His main medical problems as point has been triple-A repair by Dr. Mitchell. The patient did present as a stroke alert, but was determined to not be an appropriate candidate for TPA due to timing of the stroke and significant improvement in symptoms. 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 - ECHO- LVEF 55-60%. Moderate inferior hypokinesis. No interatrial shunt. - Stop ASA 81 mg daily, started Plavix 75 mg daily - Lipid panel reviewed- started Pravastatin 10 mg daily, watch for adverse reaction - HgbA1c 5.2% - PT/OT, aspiration precautions, and speech therapy consulted - Consulted neurology, appreciate recommendations CKD stage III- baseline Cr 1.5- STABLE BPH, urinary retention- follows w/ Dr. Piper: - Continue Finasteride 5 mg daily, CIC BID - UCx pending GI prophylaxis: Pepcid DVT prophylaxis: Lovenox SQ daily Code Status: LEVEL I, FULL Dispo: Stable for discharge pending placement, planning for [facility] (early as Wednesday)- PT/OT and CM consulted
--- NOTE | 2017-03-19 15:28 | DIAGNOSTIC IMAGING REPORT ---
VIDEO SWALLOW HISTORY: Stroke. Evaluate aspiration. TECHNIQUE: Video fluoroscopic evaluation of swallowing was performed in the AP and lateral projections by the speech pathology staff. The patient is fed nectar-thick and thin liquid barium, a barium coated wafer, and barium pudding. FLUOROSCOPY TIME: 2.6 minutes. NUMBER OF FLUOROSCOPY IMAGES: 0 COMPARISON STUDY: None. FINDINGS: The patient was administered thin liquid barium via teaspoon and there was ariadna penetration and aspiration. There is no aspiration with swallowing thin liquid barium via a cup. There is no aspiration when swallowing nectar thick liquid. When swallowing pudding there was vallecular retention but no evidence of aspiration. There is no aspiration with swallowing a cracker with paste. IMPRESSION: 1. Aspiration of thin liquid barium when swallowing via teaspoon. No evidence of aspiration of nectar thick liquid, pudding, or cracker with paste.. 2. Please see the speech pathologist report for detailed findings and recommendations. Electronically signed by: Kodak Farr M.D. 03/19/2017 3:27 PM Dictated Date/Time: 03/19/2017 3:25 PM
[2017-03-19] MEDS: PRAVASTATIN SOD 10 MG TAB PO SCH (18:58)
[2017-03-19] MEDS: FAMOTIDINE 20 MG TAB PO SCH (20:42)
[2017-03-20] MEDS: SODIUM CHLORIDE 0.9% 1000ML 1,000 ML IV SCH ×2 (05:17→15:37)
[2017-03-20 07:52] VITALS: BP 133/74; PULSE 64; TEMP 36.6; O2SAT 96
[2017-03-20 08:23] LABS: BASO % 0.1 %; BASO ABS # 0.01 K/uL (0-0.2); COMPLETE YES; EOS % 2.1 %; IG% 0.4 %; LYMPH % 21.3 %; MEAN CELL VOLUME 85.2 fL (80-100); MEAN CORPUSCULAR HEMOGLOBIN 29.8 pg (25-34); MEAN PLATELET VOLUME 9.8 fL (7.4-10.4); MONO % 9.4 %; NEUT % 66.7 %; PLATELET COUNT 186 K/uL (130-400); RED BLOOD COUNT 4.93 M/uL (4.7-6.1); WHITE BLOOD COUNT 7.97 K/uL (4.8-10.8)
[2017-03-20] MEDS: CLOPIDOGREL BISULFATE 75 MG TAB PO SCH (08:26)
[2017-03-20] MEDS: FAMOTIDINE 20 MG TAB PO SCH ×2 (08:26→19:56)
[2017-03-20] MEDS: FINASTERIDE 5 MG TAB PO SCH (08:26)
[2017-03-20] MEDS: ENOXAPARIN 30 MG/0.3 ML SYR SC SCH (08:27)
[2017-03-20 08:38] LABS: PROTHROMBIN TIME (PATIENT) 11.1 SECONDS (9.0-12.0)
[2017-03-20 09:01] LABS: BUN/CREATININE RATIO 16.7 (10-20); CALCIUM 8.4 mg/dl (8.5-10.1); CREATININE 1.29 mg/dl (0.60-1.40); POTASSIUM 3.9 mmol/L (3.5-5.1)
--- NOTE | 2017-03-20 13:38 | Progress Note ---
Subjective Date of Service: Mar 20, 2017. Subjective Pt evaluation today including: conversation w/ patient, physical exam, lab review, review of inpatient medication list Pain: no pain PO Intake: adequate Voiding: no voiding problems patient doing well, ambulated in ha with PT, left sided strength improving tolerating nectar thick liquids Problem List Medical Problems: (1) Ischemic stroke Status: Acute (2) Right basal ganglia embolic stroke Status: Acute Review of Systems Constitutional: + weakness Neurologic: + weakness (left side), + problem reported (difficulty swallowing) All Other Systems: Reviewed and Negative Medications Current Inpatient Medications Medications (Trade) Dose Ordered Sig/Dwayne Route Start Time Stop Time Status Last Admin Dose Admin Clopidogrel Bisulfate (plAVix TAB) 75 mg QAM PO 03/18/17 09:00 04/17/17 08:59 03/20/17 08:26 75 MG Miscellaneous Information (Pharmacist Discharge Med Rec Consult) 1 ea UD PRN N/A 03/18/17 06:30 04/17/17 06:29 Sodium Chloride 1,000 ml @ 100 mls/hr Q10H IV 03/18/17 07:45 04/17/17 07:44 03/20/17 05:17 100 MLS/HR Enoxaparin Sodium (Lovenox Inj) 30 mg Q24H SC 03/18/17 09:00 04/17/17 08:59 03/20/17 08:27 30 MG Acetaminophen (Tylenol Tab) 650 mg Q4H PRN PO 03/18/17 06:30 04/17/17 06:29 Ondansetron HCl (Zofran Inj) 4 mg Q6H PRN IV 03/18/17 06:30 04/17/17 06:29 Acetaminophen 100 ml @ 400 mls/hr Q8H PRN IV 03/18/17 06:30 04/17/17 06:29 Pravastatin Sodium (Pravachol Tab) 10 mg DAILY@17 PO 03/18/17 17:00 04/17/17 16:59 03/19/17 18:58 10 MG Finasteride (Proscar Tab) 5 mg QAM PO 03/19/17 09:00 04/18/17 08:59 03/20/17 08:26 5 MG Gadobutrol (Gadavist) 8 mmol UD PRN IV 03/18/17 12:15 03/22/17 12:14 Famotidine (Pepcid Tab) 20 mg BID PO 03/19/17 20:00 04/18/17 19:59 03/20/17 08:26 20 MG Objective Vital Signs Date Time Temp Pulse Resp B/P (MAP) Pulse Ox O2 Delivery O2 Flow Rate FiO2 03/20/17 07:52 36.6 64 18 133/74 (93) 96 03/20/17 07:16 Room Air 03/20/17 00:00 Room Air 03/19/17 23:36 36.5 77 18 158/76 (103) 97 Room Air 03/19/17 20:00 Room Air 03/19/17 15:42 36.8 81 20 158/70 (99) 96 Room Air Physical Exam General Appearance: WD/WN, no apparent distress Eyes: normal inspection, EOMI, sclerae normal Neck: supple, no adenopathy, no JVD, trachea midline Respiratory/Chest: chest non-tender, lungs clear, normal breath sounds, no respiratory distress, no accessory muscle use Cardiovascular: regular rate, rhythm, no edema, no gallop, no JVD, no murmur Abdomen: normal bowel sounds, non tender, soft, no organomegaly Extremities: normal range of motion, non-tender, normal inspection, no pedal edema, no calf tenderness, pelvis stable Neurologic/Psychiatric: 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, alert, normal mood/affect, oriented x 3, + motor weakness (left arm and hand, left leg 4+ out of 5) Skin: normal color, warm/dry, no rash Laboratory Results Last 24 Hours Test 03/20/17 07:39 White Blood Count 7.97 K/uL Red Blood Count 4.93 M/uL Hemoglobin 14.7 g/dL Hematocrit 42.0 % Mean Corpuscular Volume 85.2 fL Mean Corpuscular Hemoglobin 29.8 pg Mean Corpuscular Hemoglobin Concent 35.0 g/dl Platelet Count 186 K/uL Mean Platelet Volume 9.8 fL Neutrophils (%) (Auto) 66.7 % Lymphocytes (%) (Auto) 21.3 % Monocytes (%) (Auto) 9.4 % Eosinophils (%) (Auto) 2.1 % Basophils (%) (Auto) 0.1 % Neutrophils # (Auto) 5.31 K/uL Lymphocytes # (Auto) 1.70 K/uL Monocytes # (Auto) 0.75 K/uL Eosinophils # (Auto) 0.17 K/uL Basophils # (Auto) 0.01 K/uL RDW Standard Deviation 43.5 fL RDW Coefficient of Variation 14.0 % Immature Granulocyte % (Auto) 0.4 % Immature Granulocyte # (Auto) 0.03 K/uL Prothrombin Time 11.1 SECONDS Prothromb Time International Ratio 1.0 Sodium Level 133 mmol/L Potassium Level 3.9 mmol/L Chloride Level 113 mmol/L Carbon Dioxide Level 17 mmol/L Anion Gap 3.0 mmol/L Blood Urea Nitrogen 22 mg/dl Creatinine 1.29 mg/dl Est Creatinine Clear Calc Drug Dose 41.6 ml/min Estimated GFR () 57.0 Estimated GFR (Non- 49.2 BUN/Creatinine Ratio 16.7 Random Glucose 70 mg/dl Calcium Level 8.4 mg/dl Assessment and Plan - Acute ischemic stroke, right lacunar infarct in thalamus with left sided weakness antiplatelet therapy, statin started, BP control, check A1c - 5.2 neurology consult appreciated monitor for any arrhythmias - transferred to medical floor anticipate patient needing rehab, wants to go to [facility], will not happen until Wednesday - Aspiration with vomiting: video swallow, recommends nectar thick liquids - CKD stage III: stable - GERD: stable plan on d/c to [facility] on Wednesday
[2017-03-20 15:19] VITALS: BP 169/81; PULSE 70; TEMP 36.7; O2SAT 96
[2017-03-20 16:00] VITALS: O2SAT 96
[2017-03-20] MEDS ORDERED: MICONAZOLE NITRATE POWDER 43 GM EXT PRN (17:15)
[2017-03-20] MEDS: PRAVASTATIN SOD 10 MG TAB PO SCH (17:29)
[2017-03-20] MEDS: CIPROFLOXACIN 500 MG TAB PO SCH (19:56)
[2017-03-20 22:56] VITALS: BP 152/75; PULSE 68; TEMP 36.9; O2SAT 95
[2017-03-21] MEDS: SODIUM CHLORIDE 0.9% 1000ML 1,000 ML IV SCH (01:10)
[2017-03-21] MEDS: FAMOTIDINE 20 MG TAB PO SCH ×2 (07:45→19:47)
[2017-03-21] MEDS: ENOXAPARIN 30 MG/0.3 ML SYR SC SCH (07:45)
[2017-03-21] MEDS: CIPROFLOXACIN 500 MG TAB PO SCH ×2 (07:45→19:47)
[2017-03-21] MEDS: FINASTERIDE 5 MG TAB PO SCH (07:45)
[2017-03-21] MEDS: CLOPIDOGREL BISULFATE 75 MG TAB PO SCH (07:45)
[2017-03-21 08:00] VITALS: O2SAT 96
[2017-03-21 08:04] LABS: COMPLETE YES; HEMATOCRIT 39.2 % (42-52); IG% 0.3 %; LYMPH % 18.9 %; LYMPH ABS # 1.37 K/uL (1.2-3.4); MEAN CORPUSCULAR HEMOGLOBIN 28.4 pg (25-34); MEAN CORPUSCULAR HGB CONC 33.4 g/dl (32-36); MEAN PLATELET VOLUME 9.7 fL (7.4-10.4); MONO % 9.7 %; NEUT % 68.1 %; PLATELET COUNT 160 K/uL (130-400); RED BLOOD COUNT 4.61 M/uL (4.7-6.1); WHITE BLOOD COUNT 7.23 K/uL (4.8-10.8)
[2017-03-21 08:18] VITALS: BP 156/78; PULSE 65; TEMP 36.4; O2SAT 95
[2017-03-21 08:43] LABS: BUN/CREATININE RATIO 18.8 (10-20); CALCIUM 8.1 mg/dl (8.5-10.1); CREATININE 1.15 mg/dl (0.60-1.40); POTASSIUM 3.9 mmol/L (3.5-5.1)
[2017-03-21 14:18] VITALS: BP 151/78; PULSE 80; O2SAT 96
[2017-03-21 14:54] VITALS: BP 133/78; PULSE 71; TEMP 36.8; O2SAT 95
--- NOTE | 2017-03-21 15:35 | Progress Note ---
Subjective Date of Service: Mar 21, 2017. Subjective Pt evaluation today including: conversation w/ patient, physical exam, review of inpatient medication list Pain: no pain PO Intake: adequate Voiding: no voiding problems patient noticing that left side slowly getting better, he is left handed was able to bathe himself and shave this AM feeding himself with left hand feels ready for rehab tomorrow moved bowels today, urinating well Problem List Medical Problems: (1) Ischemic stroke Status: Acute (2) Right basal ganglia embolic stroke Status: Acute Review of Systems Constitutional: + weakness Neurologic: + weakness (left side) All Other Systems: Reviewed and Negative Medications Current Inpatient Medications Medications (Trade) Dose Ordered Sig/Dwayne Route Start Time Stop Time Status Last Admin Dose Admin Clopidogrel Bisulfate (plAVix TAB) 75 mg QAM PO 03/18/17 09:00 04/17/17 08:59 03/21/17 07:45 75 MG Enoxaparin Sodium (Lovenox Inj) 30 mg Q24H SC 03/18/17 09:00 04/17/17 08:59 03/21/17 07:45 30 MG Acetaminophen (Tylenol Tab) 650 mg Q4H PRN PO 03/18/17 06:30 04/17/17 06:29 Ondansetron HCl (Zofran Inj) 4 mg Q6H PRN IV 03/18/17 06:30 04/17/17 06:29 Acetaminophen 100 ml @ 400 mls/hr Q8H PRN IV 03/18/17 06:30 04/17/17 06:29 Pravastatin Sodium (Pravachol Tab) 10 mg DAILY@17 PO 03/18/17 17:00 04/17/17 16:59 03/20/17 17:29 10 MG Finasteride (Proscar Tab) 5 mg QAM PO 03/19/17 09:00 04/18/17 08:59 03/21/17 07:45 5 MG Gadobutrol (Gadavist) 8 mmol UD PRN IV 03/18/17 12:15 03/22/17 12:14 Famotidine (Pepcid Tab) 20 mg BID PO 03/19/17 20:00 04/18/17 19:59 03/21/17 07:45 20 MG Ciprofloxacin (Cipro Tab) 500 mg BID PO 03/20/17 20:00 03/30/17 19:59 03/21/17 07:45 500 MG Miconazole Nitrate (Desenex Powder) 1 appln PRN PRN EXT 03/20/17 17:15 04/19/17 17:14 Objective Vital Signs Date Time Temp Pulse Resp B/P (MAP) Pulse Ox O2 Delivery O2 Flow Rate FiO2 03/21/17 14:54 36.8 71 17 133/78 (96) 95 03/21/17 14:18 80 96 03/21/17 08:18 36.4 65 18 156/78 (104) 95 03/21/17 08:00 96 Room Air 03/20/17 23:50 Room Air 03/20/17 22:56 36.9 68 18 152/75 (100) 95 Room Air 03/20/17 16:00 96 Room Air Physical Exam General Appearance: WD/WN, no apparent distress Eyes: normal inspection, EOMI, sclerae normal ENT: normal ENT inspection, hearing grossly normal, pharynx normal Respiratory/Chest: chest non-tender, lungs clear, normal breath sounds, no respiratory distress, no accessory muscle use Cardiovascular: regular rate, rhythm, no edema, no gallop, no JVD, no murmur Abdomen: normal bowel sounds, non tender, soft, no organomegaly Extremities: normal range of motion, non-tender, normal inspection, no pedal edema, no calf tenderness, pelvis stable Neurologic/Psychiatric: 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, alert, normal mood/affect, oriented x 3, + motor weakness (left sided) Skin: normal color, warm/dry, no rash Laboratory Results Last 24 Hours Test 03/21/17 07:39 White Blood Count 7.23 K/uL Red Blood Count 4.61 M/uL Hemoglobin 13.1 g/dL Hematocrit 39.2 % Mean Corpuscular Volume 85.0 fL Mean Corpuscular Hemoglobin 28.4 pg Mean Corpuscular Hemoglobin Concent 33.4 g/dl Platelet Count 160 K/uL Mean Platelet Volume 9.7 fL Neutrophils (%) (Auto) 68.1 % Lymphocytes (%) (Auto) 18.9 % Monocytes (%) (Auto) 9.7 % Eosinophils (%) (Auto) 3.0 % Basophils (%) (Auto) 0.0 % Neutrophils # (Auto) 4.92 K/uL Lymphocytes # (Auto) 1.37 K/uL Monocytes # (Auto) 0.70 K/uL Eosinophils # (Auto) 0.22 K/uL Basophils # (Auto) 0.00 K/uL RDW Standard Deviation 43.7 fL RDW Coefficient of Variation 14.0 % Immature Granulocyte % (Auto) 0.3 % Immature Granulocyte # (Auto) 0.02 K/uL Prothrombin Time 11.0 SECONDS Prothromb Time International Ratio 1.0 Sodium Level 140 mmol/L Potassium Level 3.9 mmol/L Chloride Level 111 mmol/L Carbon Dioxide Level 19 mmol/L Anion Gap 10.0 mmol/L Blood Urea Nitrogen 22 mg/dl Creatinine 1.15 mg/dl Est Creatinine Clear Calc Drug Dose 46.6 ml/min Estimated GFR () 65.5 Estimated GFR (Non- 56.5 BUN/Creatinine Ratio 18.8 Random Glucose 85 mg/dl Calcium Level 8.1 mg/dl Assessment and Plan - Acute ischemic stroke, right lacunar infarct in thalamus with left sided weakness antiplatelet therapy, statin started, BP control, check A1c - 5.2 neurology consult appreciated monitor for any arrhythmias - transferred to medical floor anticipate patient needing rehab, wants to go to [facility], will not happen until Wednesday - Aspiration with vomiting: video swallow, recommends nectar thick liquids should continue on nectar thick liquids on discharge follow up with speech therapist at [facility] to see if diet can be changed - CKD stage III: stable - GERD: stable - UTI: E coli, sensitive to Cipro, complete 7 days, finish on 03/27 plan on d/c to [facility] on Wednesday if accepted should go on Cipro 500mg BID for UTI should be on Plavix, Pravachol
[2017-03-21 16:00] VITALS: O2SAT 95
[2017-03-21] MEDS: PRAVASTATIN SOD 10 MG TAB PO SCH (17:08)
[2017-03-21 23:20] VITALS: BP 148/75; PULSE 72; TEMP 36.8; O2SAT 95
[2017-03-22 07:52] VITALS: BP 159/76; PULSE 65; TEMP 36.6; O2SAT 93
[2017-03-22] MEDS: CLOPIDOGREL BISULFATE 75 MG TAB PO SCH (09:08)
[2017-03-22] MEDS: CIPROFLOXACIN 500 MG TAB PO SCH (09:08)
[2017-03-22] MEDS: ENOXAPARIN 30 MG/0.3 ML SYR SC SCH (09:09)
[2017-03-22] MEDS: FINASTERIDE 5 MG TAB PO SCH (09:09)
[2017-03-22] MEDS: FAMOTIDINE 20 MG TAB PO SCH (09:09)
[2017-03-22] MEDS ORDERED: LVNIS30 SC (12:27)
[2017-03-22] MEDS ORDERED: PRS5 PO (12:27)
[2017-03-22] MEDS ORDERED: PRVC10 PO (12:27)
[2017-03-22] MEDS ORDERED: PLV75 PO (12:27)
--- NOTE | 2017-03-22 12:30 | Discharge Instructions ---
Discharge Instructions Date of Service Mar 22, 2017. Admission Reason for Admission: Left Sided Weakness,Right Basal Ganglia Embolic Discharge Discharge Diagnosis / Problem: acute cva Discharge Goals Goal(s): Diagnostic testing, Therapeutic intervention Activity Recommendations Activity Level: Assistance Required Therapies: Physical Therapy, Occupational Therapy, Speech Therapy . Additional Information Patient informed of condition: Yes Advance Directives: Yes DNR: No Level of Care: Skilled Communicable Disease: Yes Prognosis: Stable Mcmahon Catheter: No Instructions / Follow-Up Instructions / Follow-Up - Acute ischemic stroke, right lacunar infarct in thalamus with left sided weakness Plavix, Pravachol, BP control, check A1c - 5.2 a sub acute rehab,at [facility] - Aspiration with vomiting: video swallow, recommends nectar thick liquids should continue on nectar thick liquids on discharge follow up with speech therapist at [facility] - CKD stage III: avoid renal toxins, and renal dose meds where appropriate -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( pt prefers early am and late pm), continue proscar, UTI: E coli, sensitive to Cipro, complete 7 days, finish on 03/27 Current Hospital Diet Patient's current hospital diet: AHA Diet (Heart Healthy) Discharge Diet Recommended Diet: Regular Diet Liquid Consistency: [place] Thick Pending Studies Studies pending at discharge: no Laboratory Results Hemoglobin A1c Test 03/18/17 05:24 Range/Units Estimated Average Glucose 103 mg/dl Hemoglobin A1c 5.2 4.5-5.6 % Lipid Panel Test 03/18/17 05:24 Range/Units Triglycerides Level 67 0-150 mg/dl Cholesterol Level 223 H 0-200 mg/dl HDL Cholesterol 19 mg/dl Cholesterol/HDL Ratio 11.7 LDL Cholesterol, Calculated 191 mg/dl Medical Emergencies . Who to Call and When: Medical Emergencies: If at any time you feel your situation is an emergency, please call 911 immediately. . Non-Emergent Contact Non-Emergency issues call your: Primary Care Provider Call Non-Emergent contact if: temperature is above 101, your pain is unusual for you . . "Provider Documentation" section prepared by Ebenezer Johnson. . Core Measure Problem Core Measures: Stroke Stroke Core Measures Reason no t-PA for Stroke: Treatment not indicated Reason no antithrom by day 2: Treatment provided - N/A Reason no antithrom at D/C: Treatment provided - N/A Reason no statin at D/C: Treatment provided - N/A Reason no anticoag w/a fib: Treatment provided - N/A
[2017-03-22] MEDS ORDERED: ROSU5TAB PO (12:31)
[2017-03-22] MEDS ORDERED: CPR500 PO (12:31)
[2017-03-22 12:57] VITALS: BP 159/76; PULSE 65; TEMP 36.6; O2SAT 93
--- NOTE | 2017-03-22 16:57 | Discharge Summary ---
Discharge Summary Date of Service Mar 22, 2017. Discharge Summary Admission Date: Mar 18, 2017 at 06:33 Discharge Date: Mar 22, 2017 [facility] Principal Diagnosis: acute stroke, uti poa Immunizations: Have You Had Influenza Vaccine: No History of Tetanus Vaccine?: No History of Pneumococcal: No History of Hepatitis B Vaccine: No Medication Reconciliation New Medications: Rosuvastatin Calcium (Crestor) 5 Mg Tab 1 TAB PO DAILY for 30 Days, #30 TAB 5 Refills Ciprofloxacin (Ciprofloxacin HCl) 500 Mg Tab 500 MG PO BID, #10 TAB Clopidogrel Bisulfate (Clopidogrel) 75 Mg Tab 75 MG PO QAM, #30 TAB 6 Refills Finasteride (Finasteride) 5 Mg Tab 5 MG PO QAM, #30 TAB Discontinued Medications: Aspirin Enteric Coated (Ecotrin Or Generic *) 81 Mg Ectab 81 MG PO DAILY, 0 Refills Discharge Exam Review of Systems: Constitutional: No fever, No chills Respiratory: No cough, No sputum, No shortness of breath Abdomen: No pain, No nausea, No vomiting, No diarrhea Neurologic: + weakness, No memory loss, No paralysis Physical Exam: General Appearance: WD/WN, + mild distress Respiratory/Chest: chest non-tender, lungs clear, normal breath sounds Cardiovascular: regular rate, rhythm, no murmur Abdomen / GI: normal bowel sounds, non tender, soft Neurologic/Psychiatric: alert, oriented x 3 Hospital Course - Acute ischemic stroke, right lacunar infarct in thalamus with left sided weakness Plavix, Pravachol, BP control, A1c - 5.2 a sub acute rehab,at [facility] - Aspiration with vomiting: video swallow, recommends nectar thick liquids should continue on nectar thick liquids on discharge follow up with speech therapist at [facility] - CKD stage III: avoid renal toxins, and renal dose meds where appropriate -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( pt prefers early am and late pm), continue proscar, UTI: E coli, sensitive to Cipro, complete 7 days, finish on 03/27 Total Time Spent: Greater than 30 minutes This includes examination of the patient, discharge planning, medication reconciliation, and communication with other providers. Discharge Instructions Please refer to the electronic Patient Visit Report (Discharge Instructions) for additional information.
== END 2017-03-22 14:20 | DRG 65 ==
LOC: C.EDB 05:06 → C.2T 06:33 → ENRESERV 06:46 → C.2T 07:00 → C.MS4W 03-19 12:09 → ENRESERV 03-19 13:12
PROVIDERS: ADMIT Hospitalist; ATTEND Internal Medicine
DX: I63.8 Other cerebral infarction (principal); G81.92 Hemiplegia, unspecified affecting left dominant side; N39.0 Urinary tract infection, site not specified; B96.20 Unspecified Escherichia coli [E. coli] as the cause of diseases classified elsewhere; R47.81 Slurred speech; R29.702 NIHSS score 2; R13.10 Dysphagia, unspecified; N18.3 Chronic kidney disease, stage 3 (moderate); N40.0 Benign prostatic hyperplasia without lower urinary tract symptoms; E78.5 Hyperlipidemia, unspecified; Z51.81 Encounter for therapeutic drug level monitoring; Z79.82 Long term (current) use of aspirin; Z86.79 Personal history of other diseases of the circulatory system; Z98.890 Other specified postprocedural states; Z87.891 Personal history of nicotine dependence